=== PATIENT | female | born 1945 | race Caucasian/White ===

== ENCOUNTER 2016-07-30 22:17 | Emergency (ER) | payer OTHER, MEDICARE ==
[~2016-07-30] VITALS: Ht 160 cm; Wt 96.5 kg
[2016-07-30 22:23] VITALS: Ht 160 cm; Wt 96.5 kg
[2016-07-30] MEDS ORDERED: CEFTRIAXONE 1 GM/50 ML (PMX) 50 ML IVPB STA (22:48)
[2016-07-30] MEDS ORDERED: SOD CHLORIDE 0.9% 500 ML IV STA (22:48)
[2016-07-30] MEDS ORDERED: ACETAMINOPHEN 500 MG TAB PO STA (22:48)
[2016-07-30 23:32] LABS: ADD SCAN DIFF NO
[2016-07-30 23:37] LABS: BASOPHILS % 0.4 % (0.0-2.0); EOSINOPHILS % 0.1 % (0.0-7.0); HEMATOCRIT 35.4 % (37.0-47.0); HEMOGLOBIN 11.7 g/dl (12.0-16.0); LYMPHOCYTES # 0.7 10^3/ul (0.8-2.9); LYMPHOCYTES % 6.4 % (15.0-51.0); MEAN CORPUSCULAR HEMOGLOBIN 26.5 pg (29.0-33.0); MEAN CORPUSCULAR HGB CONC 33.1 g/dl (32.0-37.0); MEAN CORPUSCULAR VOLUME 80.3 fl (82.0-101.0); MEAN PLATELET VOLUME 11.8 fl (7.4-10.4); MONOCYTE # 1.1 10^3/ul (0.3-0.9); NEUTROPHIL # 8.9 10^3/ul (1.6-7.5); NEUTROPHILS % 81.8 % (39.0-77.0); PLATELET COUNT 185 10^3/UL (140-415); RED BLOOD COUNT 4.41 10^6/ul (4.20-5.40); WHITE BLOOD COUNT 10.9 10^3/ul (4.8-10.8)
[2016-07-30 23:49] LABS: ALBUMIN 3.3 g/dl (3.3-4.9); ALBUMIN/GLOBULIN RATIO 1.03; BILIRUBIN,DIRECT 0.1 mg/dl (0.00-0.20); BILIRUBIN,INDIRECT 0.4 mg/dl (0-1.1); BILIRUBIN,TOTAL 0.5 mg/dl (0.2-1.3); CREATININE 2.34 mg/dl (0.44-1.00); POTASSIUM 4.9 mmol/L (3.5-5.1); TOTAL PROTEIN 6.5 g/dl (6.1-8.1)
[2016-07-31] MEDS ORDERED: INSULIN REGULAR, HUMAN 100 UNIT/1 ML 3ML VIAL SC ONE (00:30)
[2016-07-31 01:10] LABS: URINE BLOOD (Dip) POC 3+ (NEGATIVE)
--- NOTE | 2016-07-31 01:12 | ERD ---
ER Documentation Chief Complaint Date/Time DATE: 07/31/16 TIME: 01:11 Chief Complaint painful urination x 5 days, diffuculty of urinating today HPI This is a very pleasant 71-year-old female painful urination 5 days with difficulty urinating today. She has mild fever. She was seen in urgent care told to come in. No nausea no vomiting no chills. No other current complaints. ROS All systems reviewed and are negative except as per history of present illness. Allergies Allergies: Coded Allergies: No Known Allergies (Verified Allergy, Unknown, 03/30/07) PMhx/Soc History of Surgery: No Anesthesia Reaction: No Hx Neurological Disorder: No Hx Respiratory Disorders: No Hx Cardiac Disorders: Yes (HTN) Hx Psychiatric Problems: No Hx Miscellaneous Medical Probl: Yes (DM) Hx Alcohol Use: No Hx Substance Use: No Hx Tobacco Use: No Smoking Status: Never smoker Physical Exam Vitals Vital Signs Date Time Temp Pulse Resp B/P Pulse Ox O2 Delivery O2 Flow Rate FiO2 07/30/16 22:23 101.4 106 20 149/65 98 Physical Exam Const: [] Head: Atraumatic Eyes: Normal Conjunctiva ENT: Normal External Ears, Nose and Mouth. Neck: Full range of motion..~ No meningismus. Resp: Clear to auscultation bilaterally Cardio: Regular rate and rhythm, no murmurs Abd: Soft, non tender, non distended. Normal bowel sounds Skin: No petechiae or rashes Back: No midline or flank tenderness Ext: No cyanosis, or edema Neur: Awake and alert Psych: Normal Mood and Affect Result Diagram: 07/30/16 2310 07/30/16 2310 Results 24 hrs Laboratory Tests Test 07/30/16 23:10 07/31/16 00:49 07/31/16 01:10 White Blood Count 10.910^3/ul Red Blood Count 4.4110^6/ul Hemoglobin 11.7g/dl Hematocrit 35.4% Mean Corpuscular Volume 80.3fl Mean Corpuscular Hemoglobin 26.5pg Mean Corpuscular Hemoglobin Concent 33.1g/dl Red Cell Distribution Width 14.0% Platelet Count 14897^3/UL Mean Platelet Volume 11.8fl Neutrophils % 81.8% Lymphocytes % 6.4% Monocytes % 10.0% Eosinophils % 0.1% Basophils % 0.4% Nucleated Red Blood Cells % 0.0/100WBC Neutrophils # 8.910^3/ul Lymphocytes # 0.710^3/ul Monocytes # 1.110^3/ul Eosinophils # 0.010^3/ul Basophils # 0.010^3/ul Nucleated Red Blood Cells # 0.010^3/ul Sodium Level 125mmol/L Potassium Level 4.9mmol/L Chloride Level 93mmol/L Carbon Dioxide Level 13mmol/L Anion Gap 24 Blood Urea Nitrogen 63mg/dl Creatinine 2.34mg/dl Glucose Level 530mg/dl Lactic Acid Level 1.6mmol/L Calcium Level 8.0mg/dl Total Bilirubin 0.5mg/dl Direct Bilirubin 0.10mg/dl Indirect Bilirubin 0.4mg/dl Aspartate Amino Transf (AST/SGOT) 26IU/L Alanine Aminotransferase (ALT/SGPT) 129IU/L Alkaline Phosphatase 195IU/L Total Protein 6.5g/dl Albumin 3.3g/dl Globulin 3.20g/dl Albumin/Globulin Ratio 1.03 Lipase 35U/L Bedside Glucose 517mg/dL Bedside Urine pH (LAB) 5.5 Bedside Urine Protein (LAB) 2+ Bedside Urine Glucose (UA) 0.25% Bedside Urine Ketones (LAB) 1+ Bedside Urine Blood 3+ Bedside Urine Nitrite (LAB) Negative Bedside Urine Leukocyte Esterase (L 1+ Current Medications Medications (Trade) Dose Ordered Sig/Leigha Route PRN Reason Start Time Stop Time Status Last Admin Dose Admin Sodium Chloride 500 ml @ 500 mls/hr Q1H STAT IV 07/30/16 22:48 07/30/16 23:47 DC 07/30/16 23:25 Ceftriaxone Sodium (Rocephin) 50 ml @ 100 mls/hr ONCE STAT IVPB 07/30/16 22:48 07/30/16 23:17 DC 07/30/16 23:25 Acetaminophen (Tylenol Tab) 1,000 mg ONCE STAT PO 07/30/16 22:48 07/30/16 22:50 DC 07/30/16 23:25 Insulin Human Regular (Humulin R) 8 unit ONCE ONCE SC 07/31/16 00:30 07/31/16 00:31 DC 07/31/16 00:46 Procedures/MDM Medical decision-makin patient was be acute cystitis. No evidence of salvador. Patient be discharged home with Keflex pending urine culture results. Given dose of Rocephin here in the emergency department. Patient also given insulin for elevated blood sugars with no evidence of diabetic ketoacidosis Departure Diagnosis: Primary Impression: Urinary tract infection Urinary tract infection type: acute cystitis Hematuria presence: without hematuria Qualified Code: N30.00 - Acute cystitis without hematuria Condition: Stable ISAEL LILLY Jul 31, 2016 01:12
[2016-07-31] MEDS ORDERED: BACTDS PO (01:13)
[2016-07-31] MEDS ORDERED: IBUP-1542 PO (01:13)
[2016-07-31] MEDS ORDERED: CEPH-443 PO (01:13)
[2016-07-31 01:27] LABS: ADD UMIC YES; URINE BILIRUBIN (Dip) 2+ (NEGATIVE); URINE BLOOD (Dip) 3+ (NEGATIVE); URINE COLOR YELLOW (YELLOW); URINE KETONES (Dip) 15 (NEGATIVE); URINE LEUKOCYTE ESTERASE (Dip) 2+ (NEGATIVE); URINE NITRITE (Dip) NEGATIVE (NEGATIVE); URINE TOTAL PROTEIN (Dip) 1+ (NEGATIVE); URINE UROBILINOGEN (Dip) 0.2 E.U./dL (0.1-1.0)
[2016-07-31 01:29] VITALS: BP 146/58; PULSE 99; RESP 18; TEMP 98.7
[2016-07-31 01:44] LABS: ICTOTEST POSITIVE (NEGATIVE)
[2016-07-31 01:45] LABS: BACTERIA,URINE MANY; MUCUS,URINE MANY; SQUAMOUS EPITHELIAL CELL,UR MANY
[2016-08-01] MEDS ORDERED: LANT3I SC (14:30)
[2016-08-01] MEDS ORDERED: INSU100C SQ (14:31)
== END 2016-07-31 01:31 | disposition home or self-care (01) ==
LOC: FTE 22:17 → E/R 07-31 01:31
DX: N30.00 Acute cystitis without hematuria (principal); I10 Essential (primary) hypertension; E11.9 Type 2 diabetes mellitus without complications
CPT/HCPCS: 36415; 80053; 81001; 81003; 82962; 83605; 83690; 85025; 87040; 87086; 96372; 96374; J0696; J1815; J7040; Z7502; Z7610

== ENCOUNTER 2016-08-01 14:00 | Inpatient (IN) | payer MEDICARE, OTHER ==
[~2016-08-01] VITALS: Ht 157.5 cm; Wt 98.5 kg
[~2016-08-01 14:00] MED LIST: BACTDS PO; CEPH-443 PO; IBUP-1542 PO
[2016-08-01] MEDS ORDERED: SOD CHLORIDE 0.9% 1,000 ML IV ONE (14:30)
[2016-08-01] MEDS ORDERED: LANT3I SC (14:30)
[2016-08-01] MEDS ORDERED: CEFTRIAXONE 1 GM/50 ML (PMX) 50 ML IVPB ONE (14:30)
[2016-08-01 14:31] LABS: ADD SCAN DIFF NO
[2016-08-01] MEDS ORDERED: INSU100C SQ (14:31)
[2016-08-01 14:33] LABS: ABNORMAL IP MESSAGE 1; BASOPHILS % 0.3 % (0.0-2.0); EOSINOPHILS # 0.1 10^3/ul (0.0-0.5); EOSINOPHILS % 1.4 % (0.0-7.0); HEMATOCRIT 33.2 % (37.0-47.0); HEMOGLOBIN 11.3 g/dl (12.0-16.0); LYMPHOCYTES # 0.5 10^3/ul (0.8-2.9); LYMPHOCYTES % 7.5 % (15.0-51.0); MEAN CORPUSCULAR HEMOGLOBIN 26.3 pg (29.0-33.0); MEAN CORPUSCULAR VOLUME 77.2 fl (82.0-101.0); MEAN PLATELET VOLUME 11.5 fl (7.4-10.4); MONOCYTE # 0.7 10^3/ul (0.3-0.9); MONOCYTES % 10.3 % (0.0-11.0); NEUTROPHIL # 5.5 10^3/ul (1.6-7.5); NEUTROPHILS % 77.7 % (39.0-77.0); PLATELET COUNT 203 10^3/UL (140-415); RED CELL DISTRIBUTION WIDTH 14.3 % (11.5-14.5); WHITE BLOOD COUNT 7.1 10^3/ul (4.8-10.8)
[2016-08-01 14:47] LABS: INR 0.91; PROTIME 12.3 Sec (12.2-14.2)
[2016-08-01 14:48] LABS: PARTIAL THROMBOPLASTIN TIME 23.6 Sec (25.0-35.0)
[2016-08-01 14:55] LABS: ALBUMIN/GLOBULIN RATIO 0.9; BILIRUBIN,INDIRECT 0.1 mg/dl (0-1.1); BILIRUBIN,TOTAL 0.1 mg/dl (0.2-1.3); CREATININE 2.3 mg/dl (0.44-1.00); POTASSIUM 3.8 mmol/L (3.5-5.1); TOTAL PROTEIN 6.3 g/dl (6.1-8.1)
[2016-08-01 15:06] LABS: TROPONIN-I 0.096 ng/ml (0.00-0.12)
[2016-08-01 15:15] LABS: ADD UMIC YES; URINE COLOR LT. YELLOW (YELLOW)
[2016-08-01] MEDS ORDERED: SODIUM CHLORIDE 0.9% 1L BAG IV* STA (15:15)
[2016-08-01 15:16] LABS: URINE BILIRUBIN (Dip) NEGATIVE (NEGATIVE); URINE GLUCOSE (Dip) 1 % (NEGATIVE); URINE KETONES (Dip) TRACE (NEGATIVE); URINE TOTAL PROTEIN (Dip) NEGATIVE (NEGATIVE)
[2016-08-01 15:17] LABS: URINE BLOOD (Dip) 3+ (NEGATIVE); URINE LEUKOCYTE ESTERASE (Dip) 1 (NEGATIVE); URINE NITRITE (Dip) NEGATIVE (NEGATIVE); URINE UROBILINOGEN (Dip) 0.2 E.U./dL (0.1-1.0)
[2016-08-01 15:20] LABS: SQUAMOUS EPITHELIAL CELL,UR FEW
--- NOTE | 2016-08-01 15:41 | ERA ---
ER Documentation Chief Complaint Date/Time DATE: 08/01/16 TIME: 15:38 Chief Complaint RECALL FOR IV ANTIBIOTICS, POSISTIVE BC HPI 71-year-old female history of diabetes who was seen here 2 days ago for a urinary tract infection, discharged on Keflex. The patient was called back because of positive urine and blood cultures with gram-negative rods. The patient still describes mild generalized malaise. Family member is noting intermittent confusion where the patient's leukocytes have been elevated in the 500 range. The patient denies any chest pain cough or shortness of breath. ROS All systems reviewed and are negative except as per history of present illness. Medications Home Meds Reported Medications Insulin Lispro (Humalog) 100 Unit/1 Ml Cartridge, 0-10 UNIT SQ AC MEALS 08/01/16 Insulin Glargine* (Lantus*) 100 Unit/Ml Soln, 0-10 UNIT SC QHS, #1 VIAL 08/01/16 Discontinued Scripts Ibuprofen* (Motrin*) 600 Mg Tab, 600 MG PO Q6, #30 TAB Prov:ISAEL LILLY 07/31/16 Cephalexin* (Keflex*) 500 Mg Capsule, 500 MG PO QID for 7 Days, CAP Prov:ISAEL LILLY S. 07/31/16 Sulfamethoxazole-Trimethoprim* (Bactrim* DS) 800-160 Mg Tab, 1 TAB PO BID for 7 Days, TAB Prov:ISAEL LILLY S. 07/31/16 Allergies Allergies: Coded Allergies: No Known Allergies (Verified Allergy, Unknown, 03/30/07) PMhx/Soc History of Surgery: No Anesthesia Reaction: No Hx Neurological Disorder: No Hx Respiratory Disorders: No Hx Cardiac Disorders: Yes (HTN) Hx Psychiatric Problems: No Hx Miscellaneous Medical Probl: Yes (DM) Hx Alcohol Use: No Hx Substance Use: No Hx Tobacco Use: No Smoking Status: Never smoker FmHx Family History: diabetes Physical Exam Vitals Vital Signs Date Time Temp Pulse Resp B/P Pulse Ox O2 Delivery O2 Flow Rate FiO2 08/01/16 16:41 97.8 108 26 122/44 100 Nasal Cannula 2.0 08/01/16 16:36 Nasal Cannula 2 08/01/16 14:03 98.2 85 18 115/58 99 Physical Exam General: Well developed, well nourished, no acute distress Head: Normocephalic, atraumatic. Eyes: Pupils equally reactive, EOM intact ENT: Moist mucous membranes Neck: Supple, no lymphadenopathy Respiratory: Lungs clear bilaterally, no distress Cardiovascular: RRR, no murmurs, rubs, or gallops Abdominal: Soft, non-tender, non-distended, no peritoneal signs : Deferred MSK: No edema, no unilateral swelling, 5/5 strength Neurologic: Alert and oriented, moving all extremities, normal speech, no focal weakness, no cerebellar signs Skin: No rash Psych: Normal mood Result Diagram: 08/01/16 1415 08/01/16 1415 Results 24 hrs Laboratory Tests Test 08/01/16 14:15 08/01/16 14:50 08/01/16 15:18 White Blood Count 7.110^3/ul Red Blood Count 4.3010^6/ul Hemoglobin 11.3g/dl Hematocrit 33.2% Mean Corpuscular Volume 77.2fl Mean Corpuscular Hemoglobin 26.3pg Mean Corpuscular Hemoglobin Concent 34.0g/dl Red Cell Distribution Width 14.3% Platelet Count 03805^3/UL Mean Platelet Volume 11.5fl Neutrophils % 77.7% Lymphocytes % 7.5% Monocytes % 10.3% Eosinophils % 1.4% Basophils % 0.3% Nucleated Red Blood Cells % 0.0/100WBC Neutrophils # 5.510^3/ul Lymphocytes # 0.510^3/ul Monocytes # 0.710^3/ul Eosinophils # 0.110^3/ul Basophils # 0.010^3/ul Nucleated Red Blood Cells # 0.010^3/ul Prothrombin Time 12.3Sec Prothrombin Time Ratio 1.0 INR International Normalized Ratio 0.91 Activated Partial Thromboplast Time 23.6Sec Sodium Level 127mmol/L Potassium Level 3.8mmol/L Chloride Level 98mmol/L Carbon Dioxide Level 19mmol/L Anion Gap 14 Blood Urea Nitrogen 82mg/dl Creatinine 2.30mg/dl Glucose Level 464mg/dl Lactic Acid Level 3.0mmol/L Calcium Level 8.0mg/dl Total Bilirubin 0.1mg/dl Direct Bilirubin 0.00mg/dl Indirect Bilirubin 0.1mg/dl Aspartate Amino Transf (AST/SGOT) 26IU/L Alanine Aminotransferase (ALT/SGPT) 82IU/L Alkaline Phosphatase 164IU/L Troponin I 0.096ng/ml Total Protein 6.3g/dl Albumin 3.0g/dl Globulin 3.30g/dl Albumin/Globulin Ratio 0.90 Urine Color LT. YELLOW Urine Clarity CLEAR Urine pH 5.5 Urine Specific [place] 1.015 Urine Ketones TRACE Urine Nitrite NEGATIVE Urine Bilirubin NEGATIVE Urine Urobilinogen 0.2 E.U./dL Urine Leukocyte Esterase 1 Urine Microscopic RBC 5-10/HPF Urine Microscopic WBC 25-50/HPF Urine Squamous Epithelial Cells FEW Urine Hemoglobin 3+ Urine Glucose 1% Urine Total Protein NEGATIVE Blood Gas Specimen Source Blood venous Arterial Blood Date Drawn 07/25/2016 3:41:29 PM Arterial Blood Gas Puncture Site VENOUS LINE Lanre Test N/A Venous Blood pH 7.325 Venous Blood pCO2 (Temp Corrected) 36.5mmHG Venous Blood pO2 (Temp Corrected) 26.0mmHG Venous Blood HCO3 18.6mmol/L Venous Blood Oxygen Saturation 50.8mmHG Venous Blood Base Excess -6.7mmol/L Venous Blood Total Hemoglobin 11.8g/dl Venous Blood Oxyhemoglobin 50.4% Venous Blood Methemoglobin 0.3% Carboxyhemoglobin 0.4% Blood Gas Temperature 37.0C Blood Gas Actual Respiration Rate 20 Blood Gas Modality ROOM AIR FiO2 21.0% Blood Gas Critical Value Read Back DR. Alessandra MARCELO Blood Gas Notified Whom RHODA COULTER Blood Gas Notified Time 08/01/2016 3:50:02 PM Current Medications Medications (Trade) Dose Ordered Sig/Leigha Route PRN Reason Start Time Stop Time Status Last Admin Dose Admin Sodium Chloride 1,000 ml @ 1,000 mls/hr Q1H ONCE IV 08/01/16 14:30 08/01/16 15:29 DC 08/01/16 14:18 Ceftriaxone Sodium (Rocephin) 50 ml @ 100 mls/hr ONCE ONCE IVPB 08/01/16 14:30 08/01/16 14:59 DC 08/01/16 14:56 Sodium Chloride (NS) 1,790 ml BOLUS OVER 2 HOURS STAT IV* 08/01/16 15:15 08/01/16 15:18 DC 08/01/16 15:48 Insulin Human Lispro (Humalog) 6 unit ONCE STAT SC 08/01/16 16:08 08/01/16 16:09 DC Ondansetron HCl (Zofran Inj) 4 mg BRIDGE ORDER PRN IV NAUSEA AND/OR VOMITING 08/01/16 16:30 08/02/16 16:29 Acetaminophen (Tylenol Tab) 650 mg ER BRIDGE PRN PO MILD PAIN/FEVER 08/01/16 16:30 08/02/16 16:29 Procedures/MDM EKG, MONITORS, & DIAGNOSTIC IMAGING: EKG: I reviewed and interpreted a 12-lead EKG. Rhythm: Normal sinus rhythm Ectopy: None Intervals: No abnormalities ST segments: No elevations or depressions T waves: No contiguous inversions Chest x-ray: I reviewed and interpreted a 1 view of the chest Mediastinum: No enlargement Cardiac silhouette: No cardiomegaly Airspace: Clear lung saleh bilaterally without evidence of pneumothorax Bones: No evidence of fracture CT brain: No acute intracranial process LAB INTERPRETATION: The patient does have hyperglycemia with borderline acidosis. She has some ketones in the urine but a bicarb of 19. Consider possible early diabetic ketoacidosis. Lactic acidosis is also noted. MEDICAL DECISION MAKING: The patient presents with bacteremia. The patient will require sepsis screening and sepsis treatment. The patient's lactic acid is elevated consistent with severe sepsis. The patient has been given a 30 cc/kg bolus of saline. Ceftriaxone provided given gram-negative rods. The patient is otherwise well-appearing with hemodynamic stability. No indication for central line or pressors at this time. ER COURSE: The patient does have a lactic acid of 3.0. The patient however is hemodynamically stable. She has been given fluid bolus, blood cultures, antibiotics. Additionally, the patient has hyperglycemia with early signs of diabetic ketoacidosis. The patient's pH does not meet criteria and bicarb is greater than 18 however she does have ketonuria. For this reason the patient has been given IV fluids and subcutaneous Humalog of 6 units. I do not believe that insulin drip is indicated at this time. The patient remains hemodynamically stable. I believe she is stable for medical surgical floor. The patient's family did note some confusion prompting a CT of the brain. However the patient's confusion appears to be subacute, nonfocal and likely secondary to UTI. I kept the patient and/or family informed of laboratory and diagnostic imaging results throughout the emergency room course. DISPOSITION PLAN: Medical surgical admission CONSULTATION: Accepting care team and consultations: I discussed the current laboratory data, diagnostic imaging and emergency care provided. Admitting team: Dr. Ally EASON Admitting team indication: Insurance directed Sepsis Documentation: Patient's infectious symptoms have not stabilized and the patient is at risk of rapid decompensation. The patient will be admitted for careful hydration, antibiotic therapy, and infectious source control. SEVERE SEPSIS CRITERIA: Infectious source: Urinary tract infection End organ damage indicated by: [Lactate > 2.0 mmol/L SEPSIS MANAGEMENT Time of recognition of severe sepsis/septic shock: Upon arrival 3 HOUR BUNDLE Blood cultures x 2 before broad-spectrum antibiotics: Yes 30 ml/kg NS bolus Completed Initial lactate 3.0 Repeat lactate pending SEPTIC SHOCK ASSESSMENT: No lactic acid > 4.0 No persistent hypotension (SBP < 90 or 40 mmHg drop, MAP < 65) despite 30 mL/kg IV fluid bolus VOLUME REASSESSMENT FOR SEPTIC SHOCK: Reevaluation Time: 3:41 PM Temperature of 97.8, heart rate 108, respiratory rate 26, blood pressure 122/44 , pulse ox 100% on 2 L Heart Regular rate & rhythm Lungs No crackles Skin Warm & dry Cap Refill Less than 2 seconds Peripheral pulses Radially present PERSISTENT HYPOTENSION TREATMENT: Comfort care No Central line Not Required Vasopressor started Not required I considered further perfusion assessment with CVP measurement, SCVO2, bedside ultrasound volume assessment, passive leg raise, trial of further fluid bolus. And proceeded with 30 ml/kg fluid bolus of NSS, broad spectrum antbiotics, and admission. CRITICAL CARE Critical care time 35 minutes Emergent fluid management while maintaining close respiratory support. Provision of immediate and broad-spectrum antibiotic therapy. Simultaneous assessment for possible sources in order to direct targeted therapy. Consideration for invasive and chemical support to prevent cardiopulmonary collapse. Critical care time is independent of procedures performed. Departure Diagnosis: Primary Impression: Hyperglycemia Additional Impressions: Severe sepsis Urinary tract infection Qualified Code: N30.00 - Acute cystitis without hematuria Chronic renal insufficiency Qualified Code: N18.9 - Chronic renal insufficiency, unspecified stage Condition: Stable JOHNNY MARCELO MD Aug 01, 2016 15:41
[2016-08-01 15:50] LABS: MODE ROOM AIR; MetHgb Venous 0.3 %; Sample Type Blood venous; Venous COHb 0.4 %; Venous Fraction OxyHgb 50.4 %; Venous Total Hemglobin 11.8 g/dl
[2016-08-01] MEDS ORDERED: INSULIN LISPRO 100 UNIT/ML VIAL SC STA (16:08)
[2016-08-01] MEDS ORDERED: ACETAMINOPHEN 325 MG TAB PO PRN ×2 (16:30→17:30)
[2016-08-01] MEDS ORDERED: ONDANSETRON 4 MG INJ IV PRN ×2 (16:30→17:30)
--- NOTE | 2016-08-01 16:35 | RADRPT ---
PROCEDURE: CT Brain without. CLINICAL INDICATION: Altered mental status. Dizziness. TECHNIQUE: A CT of the brain was performed on multidetector high-resolution CT scanner utilizing a xial sections from the skull base through the vertex without contrast. The scan was reviewed in sof t tissue brain and high frequency resolution bone algorithm windows. Images were reviewed on a high -resolution PACS workstation. One or more the following does reduction techniques were utilized: Aut omated exposure control, adjustment of the mA/ or kV according to patient's size, or use of iterativ e reconstruction technique. The exam CTDI = 43.05 mGy and the DLP = 720.23 mGy-cm. COMPARISON: None available. FINDINGS: The ventricles and sulci are minimally prominent indicative of volume loss. There is no intracranial hemorrhage, mass effect or midline shift. No abnormal intra-axial or extra-axial fluid collections are seen. The laguerre/white matter differentiation is preserved. There are mild scattered foci of hypoattenuation in the white matter, which are nonspecific in etiol ogy but likely reflect chronic small vessel ischemic changes. There are mild intracranial vascular calcifications consistent with atherosclerosis. The visualized paranasal sinuses are essentially em ar. IMPRESSION: 1. No acute intracranial hemorrhage, transcortical infarction or mass effect. 2. Mild intracranial atherosclerosis and chronic small vessel ischemic changes. 3. Minimal generalized cerebral volume loss. RPTAT: HH .Odell Carrion MD, MD Date Time Electronically viewed and signed by .Odell Carrion MD, MD on 08/01/2016 16:35 .N/
[2016-08-01 17:22] VITALS: TEMP 98
[2016-08-01] MEDS ORDERED: BISACODYL 10 MG SUPP PR PRN (17:30)
[2016-08-01] MEDS ORDERED: GLUCAGON 1 MG INJ IM PRN (17:30)
[2016-08-01] MEDS ORDERED: DEXTROSE 50% 50 ML SYRINGE IV PRN ×2 (17:30)
[2016-08-01] MEDS ORDERED: HYDROCODONE/APAP (5/325) TAB PO PRN ×2 (17:30)
[2016-08-01] MEDS ORDERED: DOCUSATE SODIUM 100 MG CAP PO PRN (17:30)
[2016-08-01] MEDS ORDERED: GLUCOSE GEL 15 GRAM TUBE BUCCAL PRN (17:30)
[2016-08-01] MEDS ORDERED: NACL 0.9% 3 ML SYG IV SCH (17:30)
[2016-08-01] MEDS ORDERED: MAGNESIUM HYDROXIDE 30ML CUP PO PRN (17:30)
[2016-08-01] MEDS ORDERED: GLUCOSE GEL 15 GRAM TUBE PO PRN ×2 (17:30)
[2016-08-01] MEDS ORDERED: INSULIN GLARGINE [LANtus] 3 ML PEN SC ONE ×2 (18:00→18:30)
[2016-08-01] MEDS ORDERED: SOD CHLORIDE 0.9% 500 ML IV ONE (18:00)
--- NOTE | 2016-08-01 18:36 | HP ---
DATE OF ADMISSION: 08/01/2016 CHIEF COMPLAINT ON ADMISSION: The patient was recalled to the ER due to positive blood cultures. HISTORY OF PRESENT ILLNESS: This is a 71-year-old female with history of diabetes mellitus, who is not well controlled at baseline. She claims that she is on maximum of 35 units of Lantus at night a nd this is if follow blood sugars run in the 500s, and also taking NovoLog subq as a sliding scale, usually 20 units at a time because her blood sugar runs in the 400s to 600s at home, who presented t o the emergency department with complaints of generalized weakness and also because she was called b y the ER staff to come back to the ER due to positive blood cultures. The patient was seen in the e mergency department 2 days ago when she presented with a complaint of urinary tract infection and wa s diagnosed with a urinary tract infection. At that time, blood cultures and urine cultures were yogesh tuan. She was discharged home on Keflex from the ER. The patient reports that over the past 2 days, she has not been doing very well. She took the Keflex yesterday, 2 doses of it, after that she sto pped and this morning she was called to come back to the ER, so she did not take any of her Keflex. She reports that her dysuria has resolved, but she was having some suprapubic tenderness. She repo rts generalized weakness, generalized feeling of discomfort. According to the family, she was alter ed yesterday. She was not making much sense. She denies any fevers, chills, nausea or vomiting. S he denies any dysuria, but does report urinary frequency. In the emergency department, her white bl ood cell count is actually within normal. She is noted to have elevated blood sugars in the 500s an d the patient does confirm that is what her blood sugars have been running at home. She denies any chest pain, cough or shortness of breath. She reports thirst. She is independent at home and her m ental status is usually within normal at home. ALLERGIES: NO KNOWN ALLERGIES. PAST MEDICAL HISTORY: 1. Diabetes mellitus. 2. Mild hypertension, according to patient. PAST SURGICAL HISTORY: Status post cholecystectomy remotely. SOCIAL HISTORY: The patient lives with family. She denies tobacco or alcohol use. FAMILY HISTORY: Noncontributory. OUTPATIENT MEDICATIONS: Include: 1. Lispro or Humalog. She reports that she takes up to 20 units subcu with meals, depending on her insulin, and she has been running with blood sugars 400 to sometimes 500 to 600, from what she is r eporting. 2. Lantus. She also reports that she checks her blood pressure before taking it at night and she h as been taking up to 35 units if her blood sugars are in the 400s. PHYSICAL EXAMINATION: VITAL SIGNS: Temperature 98.0, heart rate of 106, respiratory rate 20, blood pressure 120/47. Debby ent is saturating 100% on 2 liters nasal cannula ____ room air. GENERAL: Patient is alert. She is oriented. She is in mild distress. She reports that she is thi rsty, but she feels much better. HEENT: Pupils are equally round and reactive to light. Extraocular muscles are intact. Anicteric sclerae. NECK: No JVD, no thyromegaly noted. HEART: Regular rhythm, tachycardic. LUNGS: Clear to auscultation bilaterally. ABDOMEN: Soft, nontender. She does have more or less an obese abdomen and the patient claims that it is baseline. She has no suprapubic tenderness on exam today. EXTREMITIES: No edema, clubbing or cyanosis. NEUROLOGIC: Grossly intact. LABORATORY DATA: White blood cell count is 7.1 with 77% neutrophils, no bands, hemoglobin 11.3, hem atocrit 33.2, platelet count of 203. Chemistry with a sodium of 127, but corrected comes up to appr oximately 131, potassium of 3.8, chloride 98, bicarbonate of 19, BUN 82, creatinine 2.30 with a gluc ose of 464 on presentation, lactic acid of 3.0, calcium 8.0, AST 26, ALT 82, alkaline phosphatase o f 164. Troponin 0.096. Repeat lactic acid is down to 1.4. Her blood sugar, however, was up to 572 , which is down to 520 currently. INR is 0.91. PT 12.3, PTT 23.6. Urinalysis shows trace ketones, 1 leukocyte esterase, negative nitrites, 25 to 50 white blood cells. Blood cultures from 07/30/2016 showing gram-negative rods x2 and urine culture also showing gram-neg ative rods. Final cultures are still pending. The patient has blood cultures and urine cultures fr om today already sent out. RADIOLOGICAL DATA: A CAT scan of the brain does not show any acute findings. ASSESSMENT AND PLAN: This is a 71-year-old female with: 1. Gram-negative chris urinary tract infection and sepsis. Her antibiotics have been expended to [facility] pen until final cultures are available. She is probably partially treated, as her white count is within normal while she was on Keflex. given her abnormal renal function, will check renal ultrasou nd today. Continue IV fluids. Treat hyperglycemia. The patient is usually on 35 units subq of ins ulin and she may need at least that; therefore, her Lantus is given tonight and will monitor her blo od sugar subsequently. Follow up blood culture results. Monitor patient. She is currently hemodyn amically stable. Her lactate is back down to normal. She may be stable enough to go to a medical/s urgical bed once her blood sugars are a little better controlled. This is per medical surgery requi rements. 2. Diabetes mellitus, not very well controlled, based on patient's reports of blood sugars at home. Hemoglobin A1c is pending. We will resume the Lantus and will titrate subsequently either up or d own, depending on where her blood sugar levels out. Continue sliding insulin and subcutaneous insul in with meals. 3. Chronic kidney disease. The patient's baseline creatinine seems to be around 2.3, based on prev ious visits here in the hospital. Will continue IV fluids currently, as she may have mostly element of acute kidney injury in setting of hyperglycemia and also hypovolemia. Check renal ultrasound. Renal ultrasound pending at this point to rule out nephrolithiasis. Follow up on urine culture resu lts and treat appropriately underlying infection. 4. Lactic acidosis seems to be resolved currently, and will repeat her BMP later today. 5. Prophylaxis: Pepcid for gastrointestinal prophylaxis. SCDs to lower extremity for deep vein th rombosis prophylaxis. DISPOSITION: The patient currently seems to be stable enough to go to a medical/surgical bed. Ruby yinka, if she is to decline of blood sugars or staying elevated, or her repeat BMP is significantly ab normal, she may need to be upgraded to telemetry. Dictated By: GENA LERMA/FREDERICK Conf#: [id number] [facility]#: [id number]
[2016-08-01 19:31] VITALS: BP 129/62; RESP 22
[2016-08-01] MEDS: INSULIN ASPART [NOVOLOG] 3 ML PEN SC SCH ×3 (19:44→20:32)
[2016-08-01] MEDS: SOD CHLORIDE 0.9% 1,000 ML IV SCH (19:52)
[2016-08-01] MEDS ORDERED: INSULIN GLARGINE [LANtus] 3 ML PEN SC SCH (20:00)
[2016-08-01] MEDS: FAMOTIDINE 20 MG TAB PO SCH (20:43)
[2016-08-01] MEDS: IMIPENEM-CILAST 500MG IV (PMX) 100 ML IVPB SCH (20:43)
[2016-08-01 20:55] LABS: CALCIUM 7.4 mg/dl (8.4-10.2); CREATININE 2.25 mg/dl (0.44-1.00); POTASSIUM 4.1 mmol/L (3.5-5.1)
[2016-08-01 21:23] VITALS: Ht 157.5 cm; Wt 98.5 kg
[2016-08-01] MEDS ORDERED: INSULIN ASPART [NOVOLOG] 3 ML PEN SC ONE (22:00)
[2016-08-01] MEDS ORDERED: INSULIN REGULAR 10 ML INJ IV ONE (22:00)
[2016-08-02] MEDS ORDERED: ALPRAZOLAM 0.25 MG TAB PO ONE (01:30)
[2016-08-02] MEDS: INSULIN ASPART [NOVOLOG] 3 ML PEN SC SCH ×5 (01:41→17:58)
[2016-08-02 02:22] LABS: POTASSIUM 3.7 mmol/L (3.5-5.1)
[2016-08-02 02:24] LABS: CREATININE 1.98 mg/dl (0.44-1.00)
[2016-08-02 02:25] LABS: CALCIUM 7.5 mg/dl (8.4-10.2)
[2016-08-02] MEDS: SOD CHLORIDE 0.9% 1,000 ML IV SCH ×4 (04:15→23:50)
[2016-08-02 05:33] LABS: ADD SCAN DIFF NO
[2016-08-02 05:46] LABS: ALBUMIN 2.5 g/dl (3.3-4.9)
[2016-08-02 05:47] LABS: POTASSIUM 3.5 mmol/L (3.5-5.1)
[2016-08-02 05:49] LABS: BILIRUBIN,INDIRECT 0.2 mg/dl (0-1.1); BILIRUBIN,TOTAL 0.2 mg/dl (0.2-1.3); CREATININE 1.8 mg/dl (0.44-1.00)
[2016-08-02] MEDS: IMIPENEM-CILAST 500MG IV (PMX) 100 ML IVPB SCH (05:49)
[2016-08-02 05:50] LABS: ALBUMIN/GLOBULIN RATIO 0.83; CALCIUM 7.7 mg/dl (8.4-10.2); TOTAL PROTEIN 5.5 g/dl (6.1-8.1)
[2016-08-02 05:52] LABS: BASOPHILS % 0.2 % (0.0-2.0); EOSINOPHILS # 0.1 10^3/ul (0.0-0.5); EOSINOPHILS % 2.5 % (0.0-7.0); HEMATOCRIT 29.3 % (37.0-47.0); HEMOGLOBIN 9.9 g/dl (12.0-16.0); LYMPHOCYTES # 0.8 10^3/ul (0.8-2.9); MAGNESIUM 2.2 mg/dl (1.7-2.5); MEAN CORPUSCULAR HGB CONC 33.8 g/dl (32.0-37.0); MEAN CORPUSCULAR VOLUME 76.9 fl (82.0-101.0); MEAN PLATELET VOLUME 11.3 fl (7.4-10.4); MONOCYTE # 0.6 10^3/ul (0.3-0.9); NEUTROPHIL # 3.9 10^3/ul (1.6-7.5); NEUTROPHILS % 68.1 % (39.0-77.0); PHOSPHORUS 1.8 mg/dl (2.5-4.9); PLATELET COUNT 205 10^3/UL (140-415); RED BLOOD COUNT 3.81 10^6/ul (4.20-5.40); RED CELL DISTRIBUTION WIDTH 14.4 % (11.5-14.5); WHITE BLOOD COUNT 5.7 10^3/ul (4.8-10.8)
[2016-08-02 07:24] VITALS: BP 157/70; RESP 18
[2016-08-02] MEDS ORDERED: POTASSIUM CHLORIDE (SR) 10 MEQ TAB PO ONE (07:30)
[2016-08-02] MEDS ORDERED: MAGNESIUM SULFATE 2 GM/50 ML 50 ML IVPB ONE (08:00)
[2016-08-02] MEDS ORDERED: ACCU-CHEK XX SCH (08:15)
[2016-08-02] MEDS: FAMOTIDINE 20 MG TAB PO SCH (08:47)
[2016-08-02] MEDS: Insulin NOVOLOG SS MODERATE Algorithm (SS with meals and bedtime) SC SCH ×4 (08:55→20:49)
[2016-08-02] MEDS ORDERED: ENOXAPARIN 30 MG/0.3 ML SYG SC SCH (09:00)
[2016-08-02] MEDS ORDERED: ALBUTEROL/IPRATROPIUM (NEB) 3 ML AMP HHN PRN (14:00)
--- NOTE | 2016-08-02 14:16 | PN ---
Date/Time of Note Date/Time of Note DATE: 08/02/16 TIME: 13:58 Assessment/Plan VTE Prophylaxis VTE Prophylaxis Intervention: SCD's Lines/Catheters Urinary Cath still in place: No Assessment/Plan Assessment/Plan 71-year-old female with: 1. Gram-negative chris, likely E coli urinary tract infection and bacteremia based on cx result from 07/30 Antibiotics adjusted to Ciprofloxacin Renal ultrasound pending given ARELY Follow up repeat blood and urine cx on this admission 2. Diabetes mellitus, not very well controlled, based on patient's reports of blood sugars at home. Hemoglobin A1c 8.5 today Lantus resumed at 20 u qhs along with Novolog 10 units qAC Continue Accuchecks with moderate SSI for now DM education appreciated 3. ARELY on likely Chronic kidney disease. Decrease IVF to 75 cc/hr Repeat labs in AM Follow up renal US results Hold of HCTZ/Triamterene for now Hold off ARB for now given renal function 4. Hypertension: Resume Metoprolol. 5. Lactic acidosis resolved. Prophylaxis: Pepcid for gastrointestinal prophylaxis. SCDs to lower extremity for deep vein thrombosis prophylaxis. DISPOSITION: Follow up repeat cultures, Blood glucose control and renal function Discharge planning over the weekend if remains stable. Subjective 24 Hr Interval Summary Free Text/Dictation Patient doing well this AM Feels better and renal function and BMP much better, BG better controlled DM education Blood cx from 07/30 back with E coli sensitive to Cipro (resistant to keflex), repeat blood cx on this admission pending Exam/Review of Systems Vital Signs Vitals Vital Signs Date Time Temp Pulse Resp B/P Pulse Ox O2 Delivery O2 Flow Rate FiO2 08/02/16 07:24 96.9 91 18 157/70 93 08/01/16 18:00 Room Air 08/01/16 17:22 2.0 Intake and Output 08/01/16 08/01/16 08/02/16 15:00 23:00 07:00 Intake Total 100 ml 1700 ml Output Total 700 ml Balance 100 ml 1000 ml Exam Constitutional: alert, oriented, other (sitting up in chair ), well developed Respiratory: clear to auscultation, normal air movement Cardiovascular: nl pulses, regular rate and rhythm Gastrointestinal: non-tender, other (obese ), soft Musculoskeletal: nl extremities to inspection Extremities: normal pulses, other (trace edema) Neurological: OPERATIONS SUPERVISOR II-XII intact, nl mental status, nl speech, nl strength Results Result Diagram: 08/02/16 0500 08/02/16 0500 Results 24 hrs Laboratory Tests Test 08/01/16 14:15 08/01/16 14:50 08/01/16 15:18 08/01/16 16:46 White Blood Count 7.1 # Red Blood Count 4.30 Hemoglobin 11.3 L Hematocrit 33.2 L Mean Corpuscular Volume 77.2 L Mean Corpuscular Hemoglobin 26.3 L Mean Corpuscular Hemoglobin Concent 34.0 Red Cell Distribution Width 14.3 Platelet Count 203 Mean Platelet Volume 11.5 H Neutrophils % 77.7 H Lymphocytes % 7.5 L Monocytes % 10.3 Eosinophils % 1.4 Basophils % 0.3 Nucleated Red Blood Cells % 0.0 Neutrophils # 5.5 Lymphocytes # 0.5 L Monocytes # 0.7 Eosinophils # 0.1 Basophils # 0.0 Nucleated Red Blood Cells # 0.0 Prothrombin Time 12.3 Prothrombin Time Ratio 1.0 INR International Normalized Ratio 0.91 Activated Partial Thromboplast Time 23.6 L Sodium Level 127 L Potassium Level 3.8 Chloride Level 98 Carbon Dioxide Level 19 L Anion Gap 14 # Blood Urea Nitrogen 82 H Creatinine 2.30 H Glucose Level 464 *H Lactic Acid Level 3.0 H Calcium Level 8.0 L Total Bilirubin 0.1 L Direct Bilirubin 0.00 Indirect Bilirubin 0.1 Aspartate Amino Transf (AST/SGOT) 26 Alanine Aminotransferase (ALT/SGPT) 82 H Alkaline Phosphatase 164 H Troponin I 0.096 Total Protein 6.3 Albumin 3.0 L Globulin 3.30 H Albumin/Globulin Ratio 0.90 Urine Color LT. YELLOW Urine Clarity CLEAR Urine pH 5.5 Urine Specific [place] 1.015 Urine Ketones TRACE Urine Nitrite NEGATIVE Urine Bilirubin NEGATIVE Urine Urobilinogen 0.2 E.U./dL Urine Leukocyte Esterase 1 Urine Microscopic RBC 5-10 Urine Microscopic WBC 25-50 Urine Squamous Epithelial Cells FEW Urine Hemoglobin 3+ H Urine Glucose 1 Urine Total Protein NEGATIVE Blood Gas Specimen Source Blood venous Arterial Blood Date Drawn 07/25/2016 3:41:29 PM Arterial Blood Gas Puncture Site VENOUS LINE Lanre Test N/A Venous Blood pH 7.325 L Venous Blood pCO2 (Temp Corrected) 36.5 Venous Blood pO2 (Temp Corrected) 26.0 Venous Blood HCO3 18.6 L Venous Blood Oxygen Saturation 50.8 L Venous Blood Base Excess -6.7 L Venous Blood Total Hemoglobin 11.8 Venous Blood Oxyhemoglobin 50.4 Venous Blood Methemoglobin 0.3 Carboxyhemoglobin 0.4 Blood Gas Temperature 37.0 Blood Gas Actual Respiration Rate 20 Blood Gas Modality ROOM AIR FiO2 21.0 Blood Gas Critical Value Read Back DR. Alessandra MARCELO Blood Gas Notified Whom RHODA RT Blood Gas Notified Time 08/01/2016 3:50:02 PM Bedside Glucose 572 *H Test 08/01/16 17:05 08/01/16 17:20 08/01/16 18:16 08/01/16 18:37 Lactic Acid Level 1.4 Bedside Glucose 520 *H 513 *H 501 *H Test 08/01/16 19:19 08/01/16 20:05 08/01/16 21:11 08/02/16 01:17 Bedside Glucose 540 *H 409 *H 313 H Sodium Level 128 L Potassium Level 4.1 Chloride Level 101 Carbon Dioxide Level 11 L Anion Gap 20 H Blood Urea Nitrogen 75 H Creatinine 2.25 H Glucose Level 544 *H Lactic Acid Level 1.0 Calcium Level 7.4 L Test 08/02/16 02:06 08/02/16 05:00 08/02/16 05:44 08/02/16 07:56 Sodium Level 135 138 Potassium Level 3.7 3.5 Chloride Level 106 107 Carbon Dioxide Level 18 L 21 Anion Gap 15 14 Blood Urea Nitrogen 70 H 66 H Creatinine 1.98 H 1.80 H Glucose Level 322 #H 212 # Calcium Level 7.5 L 7.7 L White Blood Count 5.7 Red Blood Count 3.81 L Hemoglobin 9.9 L Hematocrit 29.3 L Mean Corpuscular Volume 76.9 L Mean Corpuscular Hemoglobin 26.0 L Mean Corpuscular Hemoglobin Concent 33.8 Red Cell Distribution Width 14.4 Platelet Count 205 Mean Platelet Volume 11.3 H Neutrophils % 68.1 Lymphocytes % 14.0 L Monocytes % 11.0 Eosinophils % 2.5 Basophils % 0.2 Nucleated Red Blood Cells % 0.0 Neutrophils # 3.9 Lymphocytes # 0.8 Monocytes # 0.6 Eosinophils # 0.1 Basophils # 0.0 Nucleated Red Blood Cells # 0.0 Hemoglobin A1c 8.6 H Phosphorus Level 1.8 L Magnesium Level 2.2 Total Bilirubin 0.2 Direct Bilirubin 0.00 Indirect Bilirubin 0.2 Aspartate Amino Transf (AST/SGOT) 18 Alanine Aminotransferase (ALT/SGPT) 62 Alkaline Phosphatase 119 Total Protein 5.5 L Albumin 2.5 L Globulin 3.00 Albumin/Globulin Ratio 0.83 Bedside Glucose 183 243 H Test 08/02/16 08:39 08/02/16 12:03 Bedside Glucose 270 H 266 H Medications Medications Current Medications Imipenem/ Cilastatin Sodium (Primaxin 500 Mg/ 100 ml (Pmx)) 100 ml @ 100 mls/ hr Q12H IVPB Last administered on 08/02/16 05:49; Admin Dose 100 MLS/HR; Start 08/01/16 at 18:00 Miscellaneous Information 1 ea NOTE XX ; Start 08/01/16 at 17:30 Glucose (Glutose) 15 gm Q15M PRN PO DECREASED GLUCOSE; Start 08/01/16 at 17:30 Glucose (Glutose) 22.5 gm Q15M PRN PO DECREASED GLUCOSE; Start 08/01/16 at 17: 30 Dextrose (D50w Syringe) 25 ml Q15M PRN IV DECREASED GLUCOSE; Start 08/01/16 at 17:30 Dextrose (D50w Syringe) 50 ml Q15M PRN IV DECREASED GLUCOSE; Start 08/01/16 at 17:30 Glucagon (Glucagen) 1 mg Q15M PRN IM DECREASED GLUCOSE; Start 08/01/16 at 17:30 Glucose 15 gm 15 gm Q15M PRN BUCCAL DECREASED GLUCOSE; Start 08/01/16 at 17:30 Sodium Chloride (NS) 1,000 ml @ 75 mls/hr [id number] IV Last administered on 08/02 05:40; Admin Dose 125 MLS/HR; Start 08/01/16 at 19:00 Ondansetron HCl (Zofran Inj) 4 mg Q6H PRN IV NAUSEA AND/OR VOMITING; Start at 17:30 Acetaminophen (Tylenol Tab) 650 mg Q6H PRN PO PAIN LEVEL 1-3 OR FEVER; Start at 17:30 Acetaminophen/ Hydrocodone Bitart ([place] (5/325)) 1 tab Q6H PRN PO MODERATE PAIN LEVEL 4-6; Start 08/01/16 at 17:30 Acetaminophen/ Hydrocodone Bitart ([place] (5/325)) 2 tab Q6H PRN PO SEVERE PAIN LEVEL 7-10; Start 08/01/16 at 17:30 Docusate Sodium (Colace) 100 mg Q12H PRN PO CONSTIPATION; Start 08/01/16 at 17: 30 Magnesium Hydroxide (Milk Of Mag) 30 ml DAILY PRN PO CONSTIPATION; Start at 17:30 Bisacodyl (Dulcolax Supp) 10 mg DAILY PRN [place] CONSTIPATION; Start 08/01/16 at 17 :30 Insulin Glargine (Lantus) 20 unit DAILY SC ; Start 08/02/16 at 20:00 Metoprolol Tartrate (Lopressor) 50 mg BID PO ; Start 08/02/16 at 21:00 Ferrous Sulfate (Ferrous Sulfate (Ec)) 325 mg DAILY PO ; Start 08/03/16 at 09:00 Pantoprazole (Protonix Tab) 40 mg DAILY@06 PO ; Start 08/02/16 at 14:00 Aspirin (Halfprin) 81 mg DAILY PO ; Start 08/02/16 at 14:00 GENA PIKE Aug 02, 2016 14:15
[2016-08-02] MEDS: PANTOPRAZOLE (EC) 40 MG TAB PO SCH (14:42)
[2016-08-02] MEDS: ASPIRIN (EC) 81 MG TAB PO SCH (14:42)
[2016-08-02] MEDS: CIPROFLOXACIN 400MG/D5W 200 ML IVPB SCH (14:43)
--- NOTE | 2016-08-02 18:47 | RADRPT ---
PROCEDURE: XR Chest. CLINICAL INDICATION: Shortness of breath TECHNIQUE: Single frontal view of the chest was obtained COMPARISON: None FINDINGS: The heart is enlarged. Low lung volumes compresses the lung parenchyma. Pulmonary vascular congestion and patchy bibasilar atelectasis is suggested. The right hemidiaphragm is mildly elevated. The pleural spaces are grossly clear on this single vie w. The bones and soft tissue show no acute change. IMPRESSION: 1. Cardiomegaly. 2. Low lung volumes compresses the lung parenchyma. Pulmonary vascular congestion and patchy bibas ilar atelectasis is not excluded. 3. The right hemidiaphragm is elevated. RPTAT:AAJJ Physician Urbano Date Time Electronically viewed and signed by Bryan Herndon Physician on 08/01/2016 15:53 /
[2016-08-02 20:00] VITALS: BP 162/74; RESP 20
[2016-08-02] MEDS ORDERED: INSULIN GLARGINE [LANtus] 3 ML PEN SC SCH (20:00)
[2016-08-02] MEDS: METOPROLOL 50 MG TAB PO SCH (20:43)
[2016-08-02] MEDS: INSULIN GLARGINE [LANtus] 3 ML PEN SC SCH (20:52)
[2016-08-02 23:00] VITALS: BP 133/96; PULSE 76
[2016-08-03] MEDS ORDERED: LORAZEPAM 0.5 MG TAB PO ONE
[2016-08-03] MEDS ORDERED: INSULIN ASPART [NOVOLOG] 3 ML PEN SC SCH
[2016-08-03] MEDS: SOD CHLORIDE 0.9% 1,000 ML IV SCH ×3 (02:41→18:37)
[2016-08-03] MEDS: PANTOPRAZOLE (EC) 40 MG TAB PO SCH (06:00)
[2016-08-03 07:51] VITALS: BP 185/78; RESP 20
[2016-08-03] MEDS: Insulin NOVOLOG SS MODERATE Algorithm (SS with meals and bedtime) SC SCH ×4 (08:05→21:00)
[2016-08-03] MEDS: INSULIN ASPART [NOVOLOG] 3 ML PEN SC SCH ×3 (08:06→17:51)
[2016-08-03] MEDS: ASPIRIN (EC) 81 MG TAB PO SCH (08:15)
[2016-08-03] MEDS: FERROUS SULFATE (EC) 325 MG TAB PO SCH (08:15)
[2016-08-03] MEDS: METOPROLOL 50 MG TAB PO SCH ×2 (08:23→21:21)
[2016-08-03] MEDS: INSULIN GLARGINE [LANtus] 3 ML PEN SC SCH (08:37)
[2016-08-03 10:00] VITALS: BP 153/68; PULSE 87
[2016-08-03 11:05] LABS: ADD SCAN DIFF NO
[2016-08-03 11:08] LABS: BASOPHILS % 0.3 % (0.0-2.0); EOSINOPHILS # 0.2 10^3/ul (0.0-0.5); EOSINOPHILS % 3.1 % (0.0-7.0); HEMATOCRIT 31.2 % (37.0-47.0); HEMOGLOBIN 10.6 g/dl (12.0-16.0); LYMPHOCYTES # 1.1 10^3/ul (0.8-2.9); LYMPHOCYTES % 15.5 % (15.0-51.0); MEAN CORPUSCULAR HEMOGLOBIN 26.4 pg (29.0-33.0); MEAN CORPUSCULAR VOLUME 77.6 fl (82.0-101.0); MEAN PLATELET VOLUME 10.4 fl (7.4-10.4); MONOCYTE # 0.6 10^3/ul (0.3-0.9); MONOCYTES % 9.3 % (0.0-11.0); NEUTROPHIL # 4.7 10^3/ul (1.6-7.5); NEUTROPHILS % 68.9 % (39.0-77.0); PLATELET COUNT 249 10^3/UL (140-415); RED BLOOD COUNT 4.02 10^6/ul (4.20-5.40); RED CELL DISTRIBUTION WIDTH 14.6 % (11.5-14.5); WHITE BLOOD COUNT 6.8 10^3/ul (4.8-10.8)
[2016-08-03 11:21] LABS: POTASSIUM 3.8 mmol/L (3.5-5.1)
[2016-08-03 11:35] LABS: PHOSPHORUS 1.3 mg/dl (2.5-4.9)
--- NOTE | 2016-08-03 14:13 | PN ---
Date/Time of Note Date/Time of Note DATE: 08/03/16 TIME: 14:11 Assessment/Plan VTE Prophylaxis VTE Prophylaxis Intervention: SCD's Lines/Catheters IV Catheter Type (from [facility]): Peripheral IV Urinary Cath still in place: No Assessment/Plan Assessment/Plan [facility] 1. 71-year-old woman admitted two days ago with E.coli bacteremia, sepsis, and a urinary source. E coli was cultured from two blood samples and urine, shown resistant to cephalosporins, but sensitive to fluoroquinolones and Bactrim. * Continue ciprofloxacin * Renal ultrasound still pending 2. Diabetes mellitus, poorly controlled sugars in the 200s. Hemoglobin A1c 8.5 %. * Increase Lantus to 25 units qhs starting tonight. * Novolog increase to 13 units qAC * Continue Accuchecks * Stop sliding scale insulin to better gauge what her insulin needs are * DM education 3. Chzqg-sb-[id number] kidney disease with hypertension * Hold of HCTZ/Triamterene for now * Hold off ARB for now given renal function * On metoprolol 4. Dyspneic since yesteday. Mild basilar crackles on exam. Mild pulmonary vascular congestion on CXR two days ago. * PA/lateral CXR * Blood pressure can tolerate use of a diuretic if necessary 5. Confused last night. Sounds like . * Ativan 0.5mg PO QHS PRN for insomnia, confusion 6. Prophylaxis: Pepcid for gastrointestinal prophylaxis. SCDs to lower extremity for deep vein thrombosis prophylaxis. 7. DISPOSITION: Blood glucose control and renal function. Discharge planning over the weekend if remains stable. Elham Dickerson MD PhD [phone] Subjective 24 Hr Interval Summary Free Text/Dictation Feeling confused last night. Daughter Lashell at her bedside (one of 3 siblings) . No headache or chest pain. But she feels short of breath, despite being on oxygen per nasal cannula. Eating well. Normal bowel movements x 2. Exam/Review of Systems Vital Signs Vitals Vital Signs Date Time Temp Pulse Resp B/P Pulse Ox O2 Delivery O2 Flow Rate FiO2 08/03/16 11:36 80 16 96 Nasal Cannula 2.0 28 08/03/16 10:00 153/68 08/03/16 07:51 98.4 Intake and Output 08/02/16 08/02/16 08/03/16 15:00 23:00 07:00 Intake Total 50 ml 2390 ml 1530 ml Output Total 1500 ml 1500 ml Balance 50 ml 890 ml 30 ml Exam Constitutional: alert, oriented, well developed, mildly anxious. Respiratory: Good air movement, but with mild crackles at the bases bilaterally Cardiovascular: Symmetric pulses, regular rhythm, mildly tachycardic Gastrointestinal: non-tender, soft, positive bowel sounds. Musculoskeletal: No peripheral edema, no arthritis. Neurological: INFO PRINT PRESS OPERATOR II-XII intact, nl mental status, nl speech, nl strength, motor 5/5, toes downgoing. Results Result Diagram: 08/03/16 1050 08/03/16 1050 Results 24 hrs Laboratory Tests Test 08/02/16 17:31 08/02/16 20:41 08/03/16 01:37 08/03/16 07:49 Bedside Glucose 277 H 185 251 H 330 H Test 08/03/16 10:50 08/03/16 12:15 White Blood Count 6.8 Red Blood Count 4.02 L Hemoglobin 10.6 L Hematocrit 31.2 L Mean Corpuscular Volume 77.6 L Mean Corpuscular Hemoglobin 26.4 L Mean Corpuscular Hemoglobin Concent 34.0 Red Cell Distribution Width 14.6 H Platelet Count 249 # Mean Platelet Volume 10.4 Neutrophils % 68.9 Lymphocytes % 15.5 Monocytes % 9.3 Eosinophils % 3.1 Basophils % 0.3 Nucleated Red Blood Cells % 0.0 Neutrophils # 4.7 Lymphocytes # 1.1 Monocytes # 0.6 Eosinophils # 0.2 Basophils # 0.0 Nucleated Red Blood Cells # 0.0 Sodium Level 139 Potassium Level 3.8 Chloride Level 113 H Carbon Dioxide Level 23 Anion Gap 7 L Blood Urea Nitrogen 29 #H Creatinine 1.00 Glucose Level 225 H Calcium Level 8.0 L Phosphorus Level 1.3 L Magnesium Level 2.0 Bedside Glucose 276 H Medications Medications Current Medications Miscellaneous Information 1 ea NOTE XX ; Start 08/01/16 at 17:30 Glucose (Glutose) 15 gm Q15M PRN PO DECREASED GLUCOSE; Start 08/01/16 at 17:30 Glucose (Glutose) 22.5 gm Q15M PRN PO DECREASED GLUCOSE; Start 08/01/16 at 17: 30 Dextrose (D50w Syringe) 25 ml Q15M PRN IV DECREASED GLUCOSE; Start 08/01/16 at 17:30 Dextrose (D50w Syringe) 50 ml Q15M PRN IV DECREASED GLUCOSE; Start 08/01/16 at 17:30 Glucagon (Glucagen) 1 mg Q15M PRN IM DECREASED GLUCOSE; Start 08/01/16 at 17:30 Glucose 15 gm 15 gm Q15M PRN BUCCAL DECREASED GLUCOSE; Start 08/01/16 at 17:30 Sodium Chloride (NS) 1,000 ml @ 75 mls/hr [id number] IV Last administered on 08/03 02:41; Admin Dose 75 MLS/HR; Start 08/01/16 at 19:00 Ondansetron HCl (Zofran Inj) 4 mg Q6H PRN IV NAUSEA AND/OR VOMITING; Start at 17:30 Acetaminophen (Tylenol Tab) 650 mg Q6H PRN PO PAIN LEVEL 1-3 OR FEVER; Start at 17:30 Acetaminophen/ Hydrocodone Bitart ([place] (5/325)) 1 tab Q6H PRN PO MODERATE PAIN LEVEL 4-6; Start 08/01/16 at 17:30 Acetaminophen/ Hydrocodone Bitart ([place] (5/325)) 2 tab Q6H PRN PO SEVERE PAIN LEVEL 7-10; Start 08/01/16 at 17:30 Docusate Sodium (Colace) 100 mg Q12H PRN PO CONSTIPATION; Start 08/01/16 at 17: 30 Magnesium Hydroxide (Milk Of Mag) 30 ml DAILY PRN PO CONSTIPATION; Start at 17:30 Bisacodyl (Dulcolax Supp) 10 mg DAILY PRN [place] CONSTIPATION; Start 08/01/16 at 17 :30 Insulin Glargine (Lantus) 20 unit DAILY SC Last administered on 08/03/16 08:37 ; Admin Dose 20 UNIT; Start 08/02/16 at 20:00 Metoprolol Tartrate (Lopressor) 50 mg BID PO Last administered on 08/03/16 08: 23; Admin Dose 50 MG; Start 08/02/16 at 21:00 Ferrous Sulfate (Ferrous Sulfate (Ec)) 325 mg DAILY PO Last administered on 08:15; Admin Dose 325 MG; Start 08/03/16 at 09:00 Pantoprazole (Protonix Tab) 40 mg DAILY@06 PO Last administered on 08/02/16 14 :42; Admin Dose 40 MG; Start 08/02/16 at 14:00 Aspirin 81 mg 81 mg DAILY PO Last administered on 08/03/16 08:15; Admin Dose 81 MG; Start 08/02/16 at 14:00 Ciprofloxacin/ Dextrose (Cipro Ivpb) 200 ml @ 200 mls/hr Q24H IVPB Last administered on 08/02/16 14:43; Admin Dose 200 MLS/HR; Start 08/02/16 at 14:30 DIANA DICKERSON M.D. Aug 03, 2016 14:12
[2016-08-03] MEDS: CIPROFLOXACIN 400MG/D5W 200 ML IVPB SCH (15:45)
--- NOTE | 2016-08-03 17:30 | RADRPT ---
PROCEDURE: Renal US. CLINICAL INDICATION: Flank pain, urosepsis, pyelonephritis TECHNIQUE: Multiple sonographic images of the kidneys were obtained. The images were reviewed on a PACS workstation. COMPARISON: No prior studies are available for comparison. FINDINGS: The right kidney measures 11.4 cm. The left kidney measures 12.0 cm. The kidneys demonstrate normal echogenicity. A 1.2 cm echogenic, shadowing stone is identified in the superior pole of the left kid domenico. A 7 mm echogenic, shadowing stone is noted in the inferior pole of the right kidney. No hydro nephrosis or solid masses are observed. The bladder is filled with a small amount of urine and has an unremarkable appearance. IMPRESSION: Nonobstructing bilateral renal stones. RPTAT: AA .Emmanuel Ball MD, Date Time Electronically viewed and signed by .Emmanuel Ball MD, MD on 08/03/2016 17:30 .P/
[2016-08-03 17:50] LABS: D-DIMER 2556.3 ng/ml (<460)
[2016-08-03 19:29] VITALS: BP 164/70; RESP 20
--- NOTE | 2016-08-03 20:04 | RADRPT ---
PROCEDURE: PA and lateral chest x-ray. CLINICAL INDICATION: Crackles, dyspnea. TECHNIQUE: PA and lateral views of the chest. COMPARISON: 08/01/2016. FINDINGS: There is vascular congestion and mild interstitial edema, not significantly changed. The cardiac si lhouette is enlarged. No definite pleural effusion is seen. There is no pneumothorax. IMPRESSION: 1. Vascular congestion and mild interstitial edema, not significantly changed. 2. Enlarged cardiac silhouette. RPTAT: HTAR .Jim Conde MD, Date Time Electronically viewed and signed by .Jim Conde MD, MD on 08/03/2016 20:04 .R/
[2016-08-03 21:20] VITALS: BP 179/73; PULSE 91
[2016-08-04 01:00] VITALS: BP 159/69; PULSE 79
[2016-08-04 05:33] VITALS: RESP 20
[2016-08-04] MEDS: PANTOPRAZOLE (EC) 40 MG TAB PO SCH (05:35)
[2016-08-04 07:34] VITALS: BP 196/85; RESP 18
[2016-08-04 07:39] VITALS: BP 190/84
[2016-08-04] MEDS: FERROUS SULFATE (EC) 325 MG TAB PO SCH (07:44)
[2016-08-04] MEDS: ASPIRIN (EC) 81 MG TAB PO SCH (07:44)
[2016-08-04] MEDS: METOPROLOL 50 MG TAB PO SCH ×2 (07:44→19:45)
[2016-08-04] MEDS: Insulin NOVOLOG SS MODERATE Algorithm (SS with meals and bedtime) SC SCH ×4 (07:51→21:00)
[2016-08-04] MEDS: INSULIN ASPART [NOVOLOG] 3 ML PEN SC SCH ×3 (07:51→17:07)
[2016-08-04] MEDS ORDERED: hydrALAzine 20 MG INJ IV ONE (08:00)
[2016-08-04] MEDS: SOD CHLORIDE 0.9% 1,000 ML IV SCH ×2 (08:43→16:33)
[2016-08-04] MEDS ORDERED: INSULIN GLARGINE [LANtus] 3 ML PEN SC SCH (09:00)
[2016-08-04] MEDS ORDERED: INSULIN GLARGINE [LANtus] 3 ML PEN SC STA (10:19)
[2016-08-04] MEDS: CIPROFLOXACIN 400MG/D5W 200 ML IVPB SCH (14:16)
--- NOTE | 2016-08-04 18:36 | RADRPT ---
Vent Rate: 91 bpm RR Interval: 0 msec [place] Interval: 136 msec QRS Duration: 78 msec QT Interval: 382 msec QTC Interval: 469 msec P-R-T [place]: 54 - 76 - 50 degrees Sinus rhythm with premature atrial complexes Cannot rule out Anterior infarct , age undetermined Abnormal ECG Electronically Signed By: Yung Cano [id number]
[2016-08-04 19:00] VITALS: BP 186/84; RESP 18
--- NOTE | 2016-08-04 20:19 | PN ---
Date/Time of Note Date/Time of Note DATE: 08/04/16 TIME: 20:19 Assessment/Plan VTE Prophylaxis VTE Prophylaxis Intervention: SCD's Lines/Catheters IV C[facility]ter Type (from [facility] Peripheral IV Urinary Cath still in place: No Assessment/Plan Assessment/Plan [facility] 1. 71-year-old woman hospital day 3 with E.coli bacteremia, sepsis, and a urinary source. E coli was cultured from two blood samples and urine, shown resistant to cephalosporins, but sensitive to fluoroquinolones and Bactrim. CXR showed mild vascular congestion. * Continue ciprofloxacin * Renal ultrasound showed non-obstructing stones 2. Diabetes mellitus, sugars are better today, after she missed her Lantus last night and had a 300+ sugar in AM. Hemoglobin A1c 8.5%. * Lantus to 25 units qhs starting tonight, with AM lantus of 20 today to make up. * Novolog 13 units qAC * Continue Accuchecks * Stop sliding scale insulin to better gauge what her insulin needs are * DM education 3. Byenl-nb-cgzapcf kidney disease with hypertension * Hold of HCTZ/Triamterene for now * Hold off ARB for now given renal function * On metoprolol 4. Dyspneic since yesteday. Mild basilar crackles on exam. Mild pulmonary vascular congestion on CXR two days ago. * PA/lateral CXR * Blood pressure can tolerate use of a diuretic if necessary 5. , with confusion at night. * Ativan 1 mg IV tonight for insomnia, confusion. 6. Prophylaxis: Pepcid for gastrointestinal prophylaxis. SCDs to lower extremity for deep vein thrombosis prophylaxis. 7. DISPOSITION: Blood glucose control and renal function. Elham Dickerson MD PhD [phone] Subjective 24 Hr Interval Summary Free Text/Dictation Friendly, comfortable-appearing. Mildly anxious, but no chest pain, fever, cough, or dyspnea now. No family members present. Exam/Review of Systems Vital Signs Vitals Vital Signs Date Time Temp Pulse Resp B/P Pulse Ox O2 Delivery O2 Flow Rate FiO2 08/04/16 07:39 190/84 08/04/16 07:34 98.0 89 18 95 08/04/16 05:33 Room Air 08/03/16 11:36 2.0 28 Intake and Output 08/03/16 08/03/1608/04/17 15:00 23:00 07:00 Intake Total 1980 ml 1280 ml Output Total 0 ml 425 ml Balance 1980 ml 855 ml Exam Constitutional: alert, oriented, well developed, mildly anxious. Respiratory: Good air movement, no crackles or wheezing. Cardiovascular: Symmetric pulses, regular rhythm, mildly tachycardic Gastrointestinal: non-tender, soft, positive bowel sounds. Musculoskeletal: No peripheral edema, no arthritis. 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 Results Result Diagram: 08/03/16 1050 08/03/16 1050 Results 24 hrs Laboratory Tests Test 08/03/16 21:18 08/04/16 07:25 08/04/16 09:40 08/04/16 11:04 Bedside Glucose 101 357 H 181 183 Test 08/04/16 16:59 08/04/16 17:56 08/04/16 19:39 Bedside Glucose 122 176 95 Medications Medications Current Medications Miscellaneous Information 1 ea NOTE XX ; Start 08/01/16 at 17:30 Glucose (Glutose) 15 gm Q15M PRN PO DECREASED GLUCOSE; Start 08/01/16 at 17:30 Glucose (Glutose) 22.5 gm Q15M PRN PO DECREASED GLUCOSE; Start 08/01/16 at 17: 30 Dextrose (D50w Syringe) 25 ml Q15M PRN IV DECREASED GLUCOSE; Start 08/01/16 at 17:30 Dextrose (D50w Syringe) 50 ml Q15M PRN IV DECREASED GLUCOSE; Start 08/01/16 at 17:30 Glucagon (Glucagen) 1 mg Q15M PRN IM DECREASED GLUCOSE; Start 08/01/16 at 17:30 Glucose 15 gm 15 gm Q15M PRN BUCCAL DECREASED GLUCOSE; Start 08/01/16 at 17:30 Sodium Chloride (NS) 1,000 ml @ 75 mls/hr [id number] IV Last administered on 08/04t 08:43; Admin Dose 75 MLS/HR; Start 08/01/16 at 19:00 Ondansetron HCl (Zofran Inj) 4 mg Q6H PRN IV NAUSEA AND/OR VOMITING; Start at 17:30 Acetaminophen (Tylenol Tab) 650 mg Q6H PRN PO PAIN LEVEL 1-3 OR FEVER; Start at 17:30 Acetaminophen/ Hydrocodone Bitart ([place] (5/325)) 1 tab Q6H PRN PO MODERATE PAIN LEVEL 4-6; Start 08/01/16 at 17:30 Acetaminophen/ Hydrocodone Bitart ([place] (5/325)) 2 tab Q6H PRN PO SEVERE PAIN LEVEL 7-10; Start 08/01/16 at 17:30 Docusate Sodium (Colace) 100 mg Q12H PRN PO CONSTIPATION; Start 08/01/16 at 17: 30 Magnesium Hydroxide (Milk Of Mag) 30 ml DAILY PRN PO CONSTIPATION; Start at 17:30 Bisacodyl (Dulcolax Supp) 10 mg DAILY PRN [place] CONSTIPATION; Start 08/01/16 at 17 :30 Metoprolol Tartrate (Lopressor) 50 mg BID PO Last administered on 08/04/16 19: 45; Admin Dose 50 MG; Start 08/02/16 at 21:00 Ferrous Sulfate (Ferrous Sulfate (Ec)) 325 mg DAILY PO Last administered on 07:44; Admin Dose 325 MG; Start 08/03/16 at 09:00 Pantoprazole (Protonix Tab) 40 mg DAILY@06 PO Last administered on 08/04/16 05 :35; Admin Dose 40 MG; Start 08/02/16 at 14:00 Aspirin 81 mg 81 mg DAILY PO Last administered on 08/04/16 07:44; Admin Dose 81 MG; Start 08/02/16 at 14:00 Ciprofloxacin/ Dextrose (Cipro Ivpb) 200 ml @ 200 mls/hr Q24H IVPB Last administered on 08/04/16 14:16; Admin Dose 200 MLS/HR; Start 08/02/16 at 14:30 Insulin Glargine (Lantus) 30 unit QHS SC ; Start 08/04/16 at 21:00 DIANA DICKERSON M.D. Aug 04, 2016 20:19
[2016-08-04] MEDS: INSULIN GLARGINE [LANtus] 3 ML PEN SC SCH (21:57)
[2016-08-04 22:00] VITALS: BP 174/76; PULSE 73
[2016-08-05] VITALS: BP 173/74; PULSE 91
[2016-08-05] MEDS ORDERED: hydrALAzine 20 MG INJ IV ONE (00:30)
[2016-08-05 00:40] VITALS: BP 191/79; PULSE 92
[2016-08-05] MEDS ORDERED: SOD CHLORIDE 0.9% 1,000 ML IV SCH (01:00)
[2016-08-05] MEDS ORDERED: LORAZEPAM 2 MG INJ IV ONE (01:00)
[2016-08-05] MEDS: PANTOPRAZOLE (EC) 40 MG TAB PO SCH (05:51)
[2016-08-05 07:36] VITALS: BP 167/74; RESP 20
[2016-08-05] MEDS: METOPROLOL 50 MG TAB PO SCH ×2 (08:07→20:49)
[2016-08-05] MEDS: FERROUS SULFATE (EC) 325 MG TAB PO SCH (08:07)
[2016-08-05] MEDS: ASPIRIN (EC) 81 MG TAB PO SCH (08:07)
[2016-08-05] MEDS: Insulin NOVOLOG SS MODERATE Algorithm (SS with meals and bedtime) SC SCH ×4 (08:22→20:50)
[2016-08-05] MEDS: INSULIN ASPART [NOVOLOG] 3 ML PEN SC SCH ×3 (08:22→17:55)
[2016-08-05] MEDS: HYDROCHLOROTHIAZIDE 25 MG TAB PO SCH (09:52)
[2016-08-05] MEDS: LOSARTAN 25 MG TAB PO SCH ×2 (09:52→18:01)
[2016-08-05 10:19] LABS: ADD SCAN DIFF NO
[2016-08-05 10:25] LABS: BASOPHILS % 0.3 % (0.0-2.0); EOSINOPHILS # 0.2 10^3/ul (0.0-0.5); EOSINOPHILS % 2.5 % (0.0-7.0); HEMATOCRIT 30.9 % (37.0-47.0); LYMPHOCYTES # 1.3 10^3/ul (0.8-2.9); MEAN CORPUSCULAR HEMOGLOBIN 25.8 pg (29.0-33.0); MEAN CORPUSCULAR HGB CONC 32.4 g/dl (32.0-37.0); MEAN CORPUSCULAR VOLUME 79.8 fl (82.0-101.0); MEAN PLATELET VOLUME 10.3 fl (7.4-10.4); MONOCYTE # 0.4 10^3/ul (0.3-0.9); MONOCYTES % 5.1 % (0.0-11.0); NEUTROPHIL # 4.7 10^3/ul (1.6-7.5); NEUTROPHILS % 68.7 % (39.0-77.0); PLATELET COUNT 300 10^3/UL (140-415); RED BLOOD COUNT 3.87 10^6/ul (4.20-5.40); RED CELL DISTRIBUTION WIDTH 15.2 % (11.5-14.5); WHITE BLOOD COUNT 6.9 10^3/ul (4.8-10.8)
[2016-08-05 10:43] LABS: CREATININE 1.03 mg/dl (0.44-1.00)
[2016-08-05 10:44] LABS: CALCIUM 7.8 mg/dl (8.4-10.2); MAGNESIUM 1.4 mg/dl (1.7-2.5)
[2016-08-05] MEDS ORDERED: MAGNESIUM SULFATE 2 GM/50 ML 50 ML IVPB ONE (14:00)
[2016-08-05] MEDS: POTASSIUM CHLORIDE (SR) 20 MEQ TAB PO SCH ×3 (14:06→20:49)
[2016-08-05] MEDS: CIPROFLOXACIN 400MG/D5W 200 ML IVPB SCH (14:06)
[2016-08-05] MEDS ORDERED: QUETIAPINE 25 MG TAB PO PRN (16:30)
--- NOTE | 2016-08-05 16:32 | PN ---
Date/Time of Note Date/Time of Note DATE: 08/05/16 TIME: 15:41 Assessment/Plan VTE Prophylaxis VTE Prophylaxis Intervention: ambulation, SCD's Lines/Catheters IV Catheter Type (from Nrs): Peripheral IV Urinary Cath still in place: No Assessment/Plan Assessment/Plan 71-year-old female with: 1. E coli urinary tract infection and bacteremia based on cx result from 07/30 and repeat cultures on this admission NGTD Continue Ciprofloxacin, Renal ultrasound wnl and renal function back to normal Follow up repeat blood and urine cx on this admission 2. Diabetes mellitus, not very well controlled, based on patient's reports of blood sugars at home. Hemoglobin A1c 8.5 today Lantus up to 30 qhs along with Novolog 13 units qAC currently Continue Accuchecks with moderate SSI for now DM education appreciated 3. ARELY on likely Chronic kidney disease. Renal function better off IVF and good po intake Repleting K and Mag 4. Hypertension: on Metoprolol, resuming HCTZ and added Cozaar Prophylaxis: Pepcid for gastrointestinal prophylaxis. SCDs to lower extremity for deep vein thrombosis prophylaxis. DISPOSITION: Follow up BP and Blood glucose control and renal function Discharge planning in the next 48 hrs if remains stable. Subjective 24 Hr Interval Summary Free Text/Dictation Patient feels better, no complaints Afebrile, WBC wnl BG better and repleting K and Mag Exam/Review of Systems Vital Signs Vitals Vital Signs Date Time Temp Pulse Resp B/P Pulse Ox O2 Delivery O2 Flow Rate FiO2 08/05/16 07:36 98.4 100 20 167/74 94 08/04/16 05:33 Room Air 08/03/16 11:36 2.0 28 Intake and Output 08/04/16 08/04/16 08/05/16 15:00 23:00 07:00 Intake Total 1280 ml 1400 ml Output Total 300 ml 500 ml Balance 980 ml 900 ml Exam Constitutional: alert, oriented, well developed Respiratory: clear to auscultation, normal air movement Cardiovascular: nl pulses, regular rate and rhythm Gastrointestinal: non-tender, soft Musculoskeletal: nl extremities to inspection Extremities: normal pulses, other (no edema, clubbingor cyanosis ) Neurological: CYBER SECURITY MANAGER II-XII intact, nl mental status, nl speech, nl strength Results Result Diagram: 08/05/1690408/05/16904 Results 24 hrs Laboratory Tests Test 08/04/16 16:59 08/04/16 17:56 08/04/16 19:39 08/04/16 21:50 Bedside Glucose 122 176 95 115 Test 08/05/16 08:03 08/05/16 09:05 08/05/16 11:53 Bedside Glucose 373 H 145 White Blood Count 6.9 Red Blood Count 3.87 L Hemoglobin 10.0 L Hematocrit 30.9 L Mean Corpuscular Volume 79.8 L Mean Corpuscular Hemoglobin 25.8 L Mean Corpuscular Hemoglobin Concent 32.4 Red Cell Distribution Width 15.2 H Platelet Count 300 # Mean Platelet Volume 10.3 Neutrophils % 68.7 Lymphocytes % 19.0 Monocytes % 5.1 Eosinophils % 2.5 Basophils % 0.3 Nucleated Red Blood Cells % 0.0 Neutrophils # 4.7 Lymphocytes # 1.3 Monocytes # 0.4 Eosinophils # 0.2 Basophils # 0.0 Nucleated Red Blood Cells # 0.0 Sodium Level 143 Potassium Level 3.0 L Chloride Level 110 Carbon Dioxide Level 21 Anion Gap 15 # Blood Urea Nitrogen 20 Creatinine 1.03 H Glucose Level 306 H Calcium Level 7.8 L Magnesium Level 1.4 L Medications Medications Current Medications Miscellaneous Information 1 ea NOTE XX ; Start 08/01/16 at 17:30 Glucose (Glutose) 15 gm Q15M PRN PO DECREASED GLUCOSE; Start 08/01/16 at 17:30 Glucose (Glutose) 22.5 gm Q15M PRN PO DECREASED GLUCOSE; Start 08/01/16 at 17: 30 Dextrose (D50w Syringe) 25 ml Q15M PRN IV DECREASED GLUCOSE; Start 08/01/16 at 17:30 Dextrose (D50w Syringe) 50 ml Q15M PRN IV DECREASED GLUCOSE; Start 08/01/16 at 17:30 Glucagon (Glucagen) 1 mg Q15M PRN IM DECREASED GLUCOSE; Start 08/01/16 at 17:30 Glucose (Glutose) 15 gm Q15M PRN BUCCAL DECREASED GLUCOSE; Start 08/01/16 at 17 :30 Ondansetron HCl (Zofran Inj) 4 mg Q6H PRN IV NAUSEA AND/OR VOMITING; Start at 17:30 Acetaminophen (Tylenol Tab) 650 mg Q6H PRN PO PAIN LEVEL 1-3 OR FEVER; Start at 17:30 Acetaminophen/ Hydrocodone Bitart ([place] (5/325)) 1 tab Q6H PRN PO MODERATE PAIN LEVEL 4-6; Start 08/01/16 at 17:30 Acetaminophen/ Hydrocodone Bitart ([place] (5/325)) 2 tab Q6H PRN PO SEVERE PAIN LEVEL 7-10; Start 08/01/16 at 17:30 Docusate Sodium (Colace) 100 mg Q12H PRN PO CONSTIPATION; Start 08/01/16 at 17: 30 Magnesium Hydroxide (Milk Of Mag) 30 ml DAILY PRN PO CONSTIPATION; Start at 17:30 Bisacodyl (Dulcolax Supp) 10 mg DAILY PRN [place] CONSTIPATION; Start 08/01/16 at 17 :30 Metoprolol Tartrate (Lopressor) 50 mg BID PO Last administered on 08/05/16 08: 07; Admin Dose 50 MG; Start 08/02/16 at 21:00 Ferrous Sulfate (Ferrous Sulfate (Ec)) 325 mg DAILY PO Last administered on 08:07; Admin Dose 325 MG; Start 08/03/16 at 09:00 Pantoprazole (Protonix Tab) 40 mg DAILY@06 PO Last administered on 08/05/16 05 :51; Admin Dose 40 MG; Start 08/02/16 at 14:00 Aspirin 81 mg 81 mg DAILY PO Last administered on 08/05/16 08:07; Admin Dose 81 MG; Start 08/02/16 at 14:00 Ciprofloxacin/ Dextrose (Cipro Ivpb) 200 ml @ 200 mls/hr Q24H IVPB Last administered on 08/05/16 14:06; Admin Dose 200 MLS/HR; Start 08/02/16 at 14:30 Insulin Glargine 30 unit 30 unit QHS SC Last administered on 08/04/16 21:57; Admin Dose 30 UNIT; Start 08/04/16 at 21:00 Sodium Chloride (NS) 1,000 ml @ 0 mls/hr Q0M IV Last administered on 00:57; Admin Dose 10 MLS/HR; Start 08/05/16 at 01:00 Hydrochlorothiazide (Hydrochlorothiazide) 25 mg DAILY PO Last administered on 09:52; Admin Dose 25 MG; Start 08/05/16 at 09:30 Losartan Potassium 25 mg 25 mg BID PO Last administered on 08/05/16 09:52; Admin Dose 25 MG; Start 08/05/16 at 09:30 Magnesium Sulfate (Magnesium Sulfate 2 Gm/50 ml) 50 ml @ 25 mls/hr ONCE ONCE IVPB ; Start 08/05/16 at 14:00; Stop 08/05/16 at 15:59 Potassium Chloride (Klor-Con 20) 40 meq Q4H PO Last administered on 08/05/16 14:06; Admin Dose 40 MEQ; Start 08/05/16 at 14:00 Procedures Procedures PROCEDURE: Renal US. CLINICAL INDICATION: Flank pain, urosepsis, pyelonephritis TECHNIQUE: Multiple sonographic images of the kidneys were obtained. The images were reviewed on a PACS workstation. COMPARISON: No prior studies are available for comparison. FINDINGS: The right kidney measures 11.4 cm. The left kidney measures 12.0 cm. The kidneys demonstrate normal echogenicity. A 1.2 cm echogenic, shadowing stone is identified in the superior pole of the left kidney. A 7 mm echogenic, shadowing stone is noted in the inferior pole of the right kidney. No hydronephrosis or solid masses are observed. The bladder is filled with a small amount of urine and has an unremarkable appearance. IMPRESSION: Nonobstructing bilateral renal stones. RPTAT: AA .Emmanuel Ball MD, Date Time Electronically viewed and signed by .Emmanuel Ball MD, on 08/03/2016 17:30 GENA PIKE Aug 05, 2016 15:52
[2016-08-05] MEDS ORDERED: hydrALAzine 20 MG INJ IV PRN (18:00)
[2016-08-05 20:21] VITALS: BP 153/65; RESP 16
[2016-08-05] MEDS: INSULIN GLARGINE [LANtus] 3 ML PEN SC SCH (20:48)
[2016-08-06] MEDS ORDERED: CIPROFLOXACIN 400MG/D5W 200 ML IVPB SCH (02:00)
[2016-08-06] MEDS: POTASSIUM CHLORIDE (SR) 20 MEQ TAB PO SCH (03:35)
[2016-08-06 05:40] LABS: MAGNESIUM 1.8 mg/dl (1.7-2.5); PHOSPHORUS 2.7 mg/dl (2.5-4.9)
[2016-08-06 05:41] LABS: CALCIUM 7.6 mg/dl (8.4-10.2); CREATININE 0.91 mg/dl (0.44-1.00); POTASSIUM 4.5 mmol/L (3.5-5.1)
[2016-08-06] MEDS: PANTOPRAZOLE (EC) 40 MG TAB PO SCH (06:05)
[2016-08-06 07:33] VITALS: BP 157/65; RESP 20
[2016-08-06] MEDS: INSULIN ASPART [NOVOLOG] 3 ML PEN SC SCH ×3 (08:06→17:40)
[2016-08-06] MEDS: Insulin NOVOLOG SS MODERATE Algorithm (SS with meals and bedtime) SC SCH ×4 (08:06→21:00)
[2016-08-06] MEDS: METOPROLOL 50 MG TAB PO SCH ×2 (08:58→21:03)
[2016-08-06] MEDS: ASPIRIN (EC) 81 MG TAB PO SCH (08:58)
[2016-08-06] MEDS: FERROUS SULFATE (EC) 325 MG TAB PO SCH (08:58)
[2016-08-06] MEDS: LOSARTAN 25 MG TAB PO SCH ×2 (08:59→21:03)
[2016-08-06] MEDS: HYDROCHLOROTHIAZIDE 25 MG TAB PO SCH (08:59)
[2016-08-06 11:33] VITALS: BP 138/65; PULSE 74
--- NOTE | 2016-08-06 12:02 | PN ---
Date/Time of Note Date/Time of Note DATE: 08/06/16 TIME: 11:51 Assessment/Plan VTE Prophylaxis VTE Prophylaxis Intervention: SCD's Lines/Catheters IV C[facility] Type (from [facility] Saline Lock Urinary Cath still in place: No Assessment/Plan Assessment/Plan 71-year-old female with: 1. E coli urinary tract infection and bacteremia based on cx result from 07/30 and repeat cultures on this admission NGTD Continue Ciprofloxacin po Q12h x total of 14 days Renal ultrasound wnl Repeat blood and urine cx negative. 2. Diabetes mellitus, not very well controlled, based on patient's reports of blood sugars at home. Hemoglobin A1c 8.5 today High BG in AM only, please stop giving snacks at bedtime if patient no hypoglycemic ... Continue Lantus 30 units qhs along with Novolog 13 units qAC currently Continue Accuchecks with moderate SSI for now DM education appreciated 3. ARELY on likely Chronic kidney disease. Renal function back to normal off IVF and good po intake Repleting Mag today 4. Hypertension: on Metoprolol, HCTZ and Cozaar now. BP better controlled Prophylaxis: Pepcid for gastrointestinal prophylaxis. SCDs to lower extremity for deep vein thrombosis prophylaxis. DISPOSITION: Follow up BP and Blood glucose control. Discharge planning home tomorrow. Subjective 24 Hr Interval Summary Free Text/Dictation Patient doing well this AM No complaints of rash this AM, NO confusion or hallucinations last night. Renal function back to baseline and patient to be switched to po abx today Exam/Review of Systems Vital Signs Vitals Vital Signs Date Time Temp Pulse Resp B/P Pulse Ox O2 Delivery O2 Flow Rate FiO2 08/06/16 11:33 74 138/65 08/06/16 07:33 97.2 20 95 08/04/16 05:33 Room Air 08/03/16 11:36 2.0 28 Intake and Output 08/05/16 08/05/16 08/06/16 15:00 23:00 07:00 Intake Total 1200 ml 300 ml Output Total 1100 ml Balance 100 ml 300 ml Exam Constitutional: alert, oriented, well developed Respiratory: clear to auscultation, normal air movement Cardiovascular: nl pulses, regular rate and rhythm Gastrointestinal: non-tender, soft Musculoskeletal: nl extremities to inspection Extremities: normal pulses, other (no edema, clubbing or cyanosis ) Neurological: OLIVE PICKER II-XII intact, nl mental status, nl speech, nl strength Results Result Diagram: 08/05/16 0905 08/06/16 0453 Results 24 hrs Laboratory Tests Test 08/05/16 11:53 08/05/16 16:57 08/05/16 20:44 08/06/16 04:53 Bedside Glucose 145 190 114 Sodium Level 136 Potassium Level 4.5 Chloride Level 110 Carbon Dioxide Level 23 Anion Gap 8 Blood Urea Nitrogen 18 Creatinine 0.91 Glucose Level 345 H Calcium Level 7.6 L Phosphorus Level 2.7 Magnesium Level 1.8 Test 08/06/16 07:59 Bedside Glucose 348 H Medications Medications Current Medications Miscellaneous Information 1 ea NOTE XX ; Start 08/01/16 at 17:30 Glucose (Glutose) 15 gm Q15M PRN PO DECREASED GLUCOSE; Start 08/01/16 at 17:30 Glucose (Glutose) 22.5 gm Q15M PRN PO DECREASED GLUCOSE; Start 08/01/16 at 17: 30 Dextrose (D50w Syringe) 25 ml Q15M PRN IV DECREASED GLUCOSE; Start 08/01/16 at 17:30 Dextrose (D50w Syringe) 50 ml Q15M PRN IV DECREASED GLUCOSE; Start 08/01/16 at 17:30 Glucagon (Glucagen) 1 mg Q15M PRN IM DECREASED GLUCOSE; Start 08/01/16 at 17:30 Glucose (Glutose) 15 gm Q15M PRN BUCCAL DECREASED GLUCOSE; Start 08/01/16 at 17 :30 Ondansetron HCl (Zofran Inj) 4 mg Q6H PRN IV NAUSEA AND/OR VOMITING; Start at 17:30 Acetaminophen (Tylenol Tab) 650 mg Q6H PRN PO PAIN LEVEL 1-3 OR FEVER; Start at 17:30 Acetaminophen/ Hydrocodone Bitart ([place] (5/325)) 1 tab Q6H PRN PO MODERATE PAIN LEVEL 4-6; Start 08/01/16 at 17:30 Acetaminophen/ Hydrocodone Bitart ([place] (5/325)) 2 tab Q6H PRN PO SEVERE PAIN LEVEL 7-10; Start 08/01/16 at 17:30 Docusate Sodium (Colace) 100 mg Q12H PRN PO CONSTIPATION; Start 08/01/16 at 17: 30 Magnesium Hydroxide (Milk Of Mag) 30 ml DAILY PRN PO CONSTIPATION; Start at 17:30 Bisacodyl (Dulcolax Supp) 10 mg DAILY PRN [place] CONSTIPATION; Start 08/01/16 at 17 :30 Metoprolol Tartrate (Lopressor) 50 mg BID PO Last administered on 08/06/16 08: 58; Admin Dose 50 MG; Start 08/02/16 at 21:00 Ferrous Sulfate (Ferrous Sulfate (Ec)) 325 mg DAILY PO Last administered on 08:58; Admin Dose 325 MG; Start 08/03/16 at 09:00 Pantoprazole (Protonix Tab) 40 mg DAILY@06 PO Last administered on 08/06/16 06 :05; Admin Dose 40 MG; Start 08/02/16 at 14:00 Aspirin (Halfprin) 81 mg DAILY PO Last administered on 08/06/16 08:58; Admin Dose 81 MG; Start 08/02/16 at 14:00 Insulin Glargine 30 unit 30 unit QHS SC Last administered on 08/05/16 20:48; Admin Dose 30 UNIT; Start 08/04/16 at 21:00 Sodium Chloride (NS) 1,000 ml @ 0 mls/hr Q0M IV Last administered on 00:57; Admin Dose 10 MLS/HR; Start 08/05/16 at 01:00 Hydrochlorothiazide (Hydrochlorothiazide) 25 mg DAILY PO Last administered on 08:59; Admin Dose 25 MG; Start 08/05/16 at 09:30 Losartan Potassium (Cozaar) 25 mg BID PO Last administered on 08/06/16 08:59; Admin Dose 25 MG; Start 08/05/16 at 09:30 Quetiapine Fumarate (Seroquel) 25 mg HS PRN PO AGITATION Last administered on 20:49; Admin Dose 25 MG; Start 08/05/16 at 16:30 Hydralazine HCl (Apresoline) 10 mg Q8H PRN IV ELEVATED BLOOD PRESSURE; Start at 18:00 Ciprofloxacin (Cipro) 500 mg Q12 PO ; Start 08/06/16 at 12:00; Status GENA AVINA Aug 06, 2016 12:02
[2016-08-06] MEDS: CIPROFLOXACIN 500 MG TAB PO SCH ×2 (12:28→21:02)
[2016-08-06] MEDS ORDERED: MAGNESIUM SULFATE 2 GM/50 ML 50 ML IVPB ONE (13:00)
[2016-08-06 20:18] VITALS: BP 176/76; RESP 20
[2016-08-06] MEDS: INSULIN GLARGINE [LANtus] 3 ML PEN SC SCH (21:12)
[2016-08-06 23:00] VITALS: BP 158/68
[2016-08-07] MEDS: PANTOPRAZOLE (EC) 40 MG TAB PO SCH (05:26)
[2016-08-07 05:54] LABS: MAGNESIUM 1.8 mg/dl (1.7-2.5); PHOSPHORUS 3.3 mg/dl (2.5-4.9); POTASSIUM 4.6 mmol/L (3.5-5.1)
[2016-08-07 05:56] LABS: CREATININE 0.95 mg/dl (0.44-1.00)
[2016-08-07 05:57] LABS: CALCIUM 8.3 mg/dl (8.4-10.2)
[2016-08-07 07:33] VITALS: BP 195/77; RESP 20
[2016-08-07] MEDS: Insulin NOVOLOG SS MODERATE Algorithm (SS with meals and bedtime) SC SCH ×3 (07:53→17:32)
[2016-08-07] MEDS: INSULIN ASPART [NOVOLOG] 3 ML PEN SC SCH ×3 (07:56→17:32)
[2016-08-07] MEDS: CIPROFLOXACIN 500 MG TAB PO SCH (08:32)
[2016-08-07] MEDS: FERROUS SULFATE (EC) 325 MG TAB PO SCH (08:32)
[2016-08-07] MEDS: ASPIRIN (EC) 81 MG TAB PO SCH (08:32)
[2016-08-07] MEDS: LOSARTAN 25 MG TAB PO SCH (08:33)
[2016-08-07] MEDS: METOPROLOL 50 MG TAB PO SCH (08:33)
[2016-08-07] MEDS: HYDROCHLOROTHIAZIDE 25 MG TAB PO SCH (08:33)
[2016-08-07 08:38] VITALS: BP 157/70; PULSE 86
[2016-08-07] MEDS: LACTOBACILLUS RHAMNOSUS CAP PO SCH ×2 (14:00→15:34)
[2016-08-07] MEDS ORDERED: FUROSEMIDE 20 MG INJ IV ONE (14:00)
--- NOTE | 2016-08-07 14:02 | PN ---
Date/Time of Note Date/Time of Note DATE: 08/07/16 TIME: 13:33 Assessment/Plan VTE Prophylaxis VTE Prophylaxis Intervention: SCD's Lines/Catheters IV [facility] Saline Lock Urinary Cath still in place: No Assessment/Plan Assessment/Plan 71-year-old female with: 1. E coli urinary tract infection and bacteremia based on cx result from 07/30 and repeat cultures on this admission NGTD Continue Ciprofloxacin po Q12h x total of 14 days Renal ultrasound wnl Repeat blood and urine cx negative. 2. Diabetes mellitus, not very well controlled, based on patient's reports of blood sugars at home. Hemoglobin A1c 8.5 today High BG in AM only, please stop giving snacks at bedtime if patient no hypoglycemic ... Continue Lantus 30 units qhs along with Novolog 13 units qAC currently Continue Accuchecks with moderate SSI for now DM education appreciated To follow up with her PCP on 08/08 at 11 45 am 3. ARELY on likely Chronic kidney disease. Renal function back to normal Good po intake 4. Hypertension: on Metoprolol, HCTZ and Cozaar now. BP better controlled Prophylaxis: Pepcid for gastrointestinal prophylaxis. SCDs to lower extremity for deep vein thrombosis prophylaxis. DISPOSITION: Discharge home today and to follow up with Dr Spears tomorrow AM at 11 45 am. Subjective 24 Hr Interval Summary Free Text/Dictation Patient doing better everyday and no complaints today She has ambulated with RN on floor on RA and good UOP Some LE edema noted and patient will be given 1 dose of Lasix Amber Lobo updated of discharge plan for today and she will available to pick out hand patient after 5 30 pm Exam/Review of Systems Vital Signs Vitals Vital Signs Date Time Temp Pulse Resp B/P Pulse Ox O2 Delivery O2 Flow Rate FiO2 08/07/16 08:38 86 157/70 08/07/16 07:33 97.7 20 93 08/04/16 05:33 Room Air 08/03/16 11:36 2.0 28 Intake and Output 08/06/16 08/06/16 08/07/16 15:00 23:00 07:00 Intake Total 40 ml 1580 ml 700 ml Output Total 600 ml 1700 ml 960 ml Balance -560 ml -120 ml -260 ml Exam Constitutional: alert, oriented, well developed Respiratory: clear to auscultation, normal air movement Cardiovascular: nl pulses, regular rate and rhythm Musculoskeletal: nl extremities to inspection, nl gait and stance Extremities: normal pulses Neurological: 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'S TUTOR NURSERY II-XII intact, nl mental status, nl speech, nl strength Results Result Diagram: 08/05/16 0905 08/07/16 0507 Results 24 hrs Laboratory Tests Test 08/06/16 17:21 08/06/16 21:02 08/07/16 05:07 08/07/16 07:49 Bedside Glucose 239 H 144 319 H Sodium Level 139 Potassium Level 4.6 Chloride Level 104 Carbon Dioxide Level 25 Anion Gap 15 # Blood Urea Nitrogen 18 Creatinine 0.95 Glucose Level 320 H Calcium Level 8.3 L Phosphorus Level 3.3 Magnesium Level 1.8 Test 08/07/16 12:01 Bedside Glucose 240 H Medications Medications Current Medications Miscellaneous Information 1 ea NOTE XX ; Start 08/01/16 at 17:30 Glucose (Glutose) 15 gm Q15M PRN PO DECREASED GLUCOSE; Start 08/01/16 at 17:30 Glucose (Glutose) 22.5 gm Q15M PRN PO DECREASED GLUCOSE; Start 08/01/16 at 17: 30 Dextrose (D50w Syringe) 25 ml Q15M PRN IV DECREASED GLUCOSE; Start 08/01/16 at 17:30 Dextrose (D50w Syringe) 50 ml Q15M PRN IV DECREASED GLUCOSE; Start 08/01/16 at 17:30 Glucagon (Glucagen) 1 mg Q15M PRN IM DECREASED GLUCOSE; Start 08/01/16 at 17:30 Glucose (Glutose) 15 gm Q15M PRN BUCCAL DECREASED GLUCOSE; Start 08/01/16 at 17 :30 Ondansetron HCl (Zofran Inj) 4 mg Q6H PRN IV NAUSEA AND/OR VOMITING; Start at 17:30 Acetaminophen (Tylenol Tab) 650 mg Q6H PRN PO PAIN LEVEL 1-3 OR FEVER; Start at 17:30 Acetaminophen/ Hydrocodone Bitart ([place] (5/325)) 1 tab Q6H PRN PO MODERATE PAIN LEVEL 4-6; Start 08/01/16 at 17:30 Acetaminophen/ Hydrocodone Bitart ([place] (5/325)) 2 tab Q6H PRN PO SEVERE PAIN LEVEL 7-10; Start 08/01/16 at 17:30 Docusate Sodium (Colace) 100 mg Q12H PRN PO CONSTIPATION; Start 08/01/16 at 17: 30 Magnesium Hydroxide (Milk Of Mag) 30 ml DAILY PRN PO CONSTIPATION; Start at 17:30 Bisacodyl (Dulcolax Supp) 10 mg DAILY PRN [place] CONSTIPATION; Start 08/01/16 at 17 :30 Metoprolol Tartrate (Lopressor) 50 mg BID PO Last administered on 08/07/16 08: 33; Admin Dose 50 MG; Start 08/02/16 at 21:00 Ferrous Sulfate (Ferrous Sulfate (Ec)) 325 mg DAILY PO Last administered on 08:32; Admin Dose 325 MG; Start 08/03/16 at 09:00 Pantoprazole (Protonix Tab) 40 mg DAILY@06 PO Last administered on 08/07/16 05 :26; Admin Dose 40 MG; Start 08/02/16 at 14:00 Aspirin (Halfprin) 81 mg DAILY PO Last administered on 08/07/16 08:32; Admin Dose 81 MG; Start 08/02/16 at 14:00 Insulin Glargine (Lantus) 30 unit QHS SC Last administered on 08/06/16 21:12; Admin Dose 30 UNIT; Start 08/04/16 at 21:00 Hydrochlorothiazide (Hydrochlorothiazide) 25 mg DAILY PO Last administered on 08:33; Admin Dose 25 MG; Start 08/05/16 at 09:30 Losartan Potassium (Cozaar) 25 mg BID PO Last administered on 08/07/16 08:33; Admin Dose 25 MG; Start 08/05/16 at 09:30 Quetiapine Fumarate (Seroquel) 25 mg HS PRN PO AGITATION Last administered on 20:49; Admin Dose 25 MG; Start 08/05/16 at 16:30 Hydralazine HCl (Apresoline) 10 mg Q8H PRN IV ELEVATED BLOOD PRESSURE; Start at 18:00 Ciprofloxacin (Cipro) 500 mg Q12 PO Last administered on 08/07/16 08:32; Admin Dose 500 MG; Start 08/06/16 at 12:00 GENA PIKE Aug 07, 2016 13:43
--- NOTE | 2016-08-07 14:08 | PDOCDIS ---
Discharge Instructions CONDITION Patient Condition: Good HOME CARE INSTRUCTIONS: Special Diet: CARB CONTROLLED ACTIVITY: Activity Restrictions: Slowly Increase Activity FOLLOW UP/APPOINTMENTS Appointments Follow up with PCP Dr Awa Spears tomorrow AM at 11 45 am Please stop triamterene/hCTZ pills and valsartan Ok to continue all other home meds including ASA, Metoprolol, Ferrous sulfate, rosuvastatin, Novolog, and current dosing of Lantus (30 units qhs). GENA PIKE Aug 07, 2016 14:08
[2016-08-07] MEDS ORDERED: FER325 PO (14:17)
[2016-08-07] MEDS ORDERED: HYD25 PO (14:17)
[2016-08-07] MEDS ORDERED: CIPR500T4 PO (14:17)
[2016-08-07] MEDS ORDERED: INSU100C SQ (14:17)
[2016-08-07] MEDS ORDERED: LOSA25TA5 PO (14:17)
[2016-08-07] MEDS ORDERED: ASPI-664 PO (14:17)
[2016-08-07] MEDS ORDERED: LANT3I SC (14:17)
[2016-08-07] MEDS ORDERED: LACT1CAP57 PO (14:17)
[2016-08-07] MEDS ORDERED: METO-429 PO (14:17)
[2016-08-07 14:57] VITALS: BP 144/67; PULSE 70
[2016-08-07] MEDS ORDERED: FUROSEMIDE 20 MG TAB PO ONE (15:00)
[2016-08-07 16:47] VITALS: BP 143/64; PULSE 84
--- NOTE | 2016-08-08 11:29 | DS ---
DATE OF ADMISSION: 08/01/2016 DATE OF DISCHARGE: 08/07/2016 ADMITTING PHYSICIAN: Dr. Sierra DISCHARGING PHYSICIAN: Dr. Sierra CHIEF COMPLAINT ON ADMISSION: Positive blood cultures. BRIEF HISTORY OF PRESENT ILLNESS: This is a 71-year-old female with uncontrolled diabetes mellitus, hypertension who presented to the emergency department with ongoing lethargy. The patient was actu ally called back to the emergency department due to positive blood cultures reported. Upon arrival, she was found to be lethargic. Her blood sugars were up to 500, almost 600. She was recultured, s tarted on IV antibiotics, started on insulin for blood sugar control and IV fluids. HOSPITAL COURSE: The patient was admitted to a medical/surgical bed. Her vital signs were stable; however, she was found to be in acute kidney injury secondary to prerenal azotemia in the setting o f severe hyperglycemia. She was restarted on Lantus at first on 20 units subcutaneously at bedtime along with sliding scale insulin and premeal insulin. She was aggressively rehydrated and maintaine d on IV antibiotics. Her Escherichia coli on her blood cultures and urine cultures came back sensit pepito to ciprofloxacin. Therefore, her antibiotic regimen was switched to ciprofloxacin IV. Her bloo d sugar became finally controlled as much as possible with Lantus 30 units subcutaneously at bedtime along with 8 to 13 units of insulin premeal. Her appetite did improve. She started eating again. She is able to ambulate in the hallway on room air. She has no urinary complaints. Her renal func tion is back to baseline and her electrolytes have corrected during her stay. Her repeat blood cult ures are negative. Repeat urine cultures negative. She is being discharged home on ciprofloxacin a nd the current regimen of insulin. I have recommended for her to follow up with her primary care ph ysician and she does have a scheduled appointment on 08/08/2016, and she may also need a referral to endocrinology. She was found to be hypertensive; therefore, her medications were adjusted during t his stay. She is on a dual diuretic, triamterene and hydrochlorothiazide, which is simplified to hy drochlorothiazide only, given her prerenal azotemia and electrolyte abnormalities upon admission. The patient was discharged in stable condition. DISPOSITION: Discharge home. DISCHARGE CONDITION: Stable. DISCHARGE DIET: Diabetic diet. DISCHARGE ACTIVITY: Resume home activity as tolerated. FOLLOWUP: The patient is to follow up with her primary care physician, Dr. Awa Spears, which i s scheduled for 08/08/2016 at 11:45 a.m. She is recommended to stop her triamterene/hydrochlorothia zide and also her Valsartan. She has been put now on hydrochlorothiazide only, and her home medicat ions have been reconciliated appropriately. DISCHARGE DIAGNOSES: 1. Escherichia coli urinary tract infection and bacteremia. 2. Diabetes mellitus, not well controlled. 3. Acute kidney injury, resolved. 4. Hypertension. DISCHARGE MEDICATIONS 1. Aspirin 81 mg p.o. daily. 2. Ciprofloxacin 500 mg p.o. q.12h. 3. Ferrous sulfate 325 mg p.o. daily. 4. Hydrochlorothiazide 25 mg p.o. daily. 5. Lantus 30 units subcutaneously at bedtime. 6. Culturelle 1 tab p.o. b.i.d. 7. Losartan 25 mg p.o. b.i.d. 8. Lopressor 50 mg p.o. b.i.d. 9. Lispro 8 to 10 units subcutaneously q. a.c. Dictated By: GENA LERMA/FREDERICK Conf#: [id number] DID#: [id number]
== END 2016-08-07 18:20 | disposition home or self-care (01) | DRG 872 ==
LOC: E/R 14:00 → MS2 16:28
PROVIDERS: ADMIT Internal Medicine; ATTEND Internal Medicine
DX: A41.50 Gram-negative sepsis, unspecified (principal); N17.9 Acute kidney failure, unspecified; E11.22 Type 2 diabetes mellitus with diabetic chronic kidney disease; E11.65 Type 2 diabetes mellitus with hyperglycemia; N39.0 Urinary tract infection, site not specified; B96.89 Other specified bacterial agents as the cause of diseases classified elsewhere; I12.9 Hypertensive chronic kidney disease with stage 1 through stage 4 chronic kidney disease, or unspecified chronic kidney disease; N18.9 Chronic kidney disease, unspecified
CPT/HCPCS: 36415; 70450; 71010; 71020; 76775; 80048; 80053; 81001; 81003; 82803; 82962; 83036; 83605; 83735; 83880; 84100; 84484; 85025; 85378; 85610; 85651; 85730; 87040; 87045; 87086; 93005; 94640; 96361; 96365; 96372; 97162; J1940; J0360; J0696; J0743; J0744; J1815; J2060; J3475; J7030; J7040

== ENCOUNTER 2016-08-28 13:32 | Emergency (ER) | payer MEDICARE, OTHER ==
[~2016-08-28] VITALS: Ht 165.1 cm; Wt 90.0 kg
[~2016-08-28 13:32] MED LIST changes: +ASPI-664 PO; -BACTDS PO; -CEPH-443 PO; +CIPR500T4 PO; +FER325 PO; +HYD25 PO; -IBUP-1542 PO; +INSU100C SQ; +LACT1CAP57 PO; +LANT3I SC; +LOSA25TA5 PO; +METO-429 PO
[2016-08-28 13:35] VITALS: Ht 165.1 cm; Wt 90.0 kg
[2016-08-28 16:10] LABS: URINE BLOOD (Dip) POC Trace-lysed (NEGATIVE)
[2016-08-28] MEDS ORDERED: INSU100C SQ (17:22)
[2016-08-28] MEDS ORDERED: OMEP20CA16 PO (17:23)
[2016-08-28] MEDS ORDERED: LANT3I SC (17:23)
[2016-08-28] MEDS ORDERED: OMEG1CAP2 PO (17:24)
[2016-08-28] MEDS ORDERED: CRES10 PO (17:24)
[2016-08-28] MEDS ORDERED: CEPH-443 PO (17:25)
[2016-08-28] MEDS ORDERED: PHEN-538 PO (17:25)
[2016-08-28 17:30] VITALS: BP 180/65; PULSE 65; RESP 17; TEMP 98.7
--- NOTE | 2016-08-28 19:04 | ERD ---
ER Documentation Chief Complaint Date/Time DATE: 08/28/16 TIME: 19:01 Chief Complaint ap x 1 mos HPI Patient is a 71-year-old female with hypertension and diabetes. The patient presents with a "urine infection". The patient has pain in her kidneys and lower abdomen. The symptoms started 2 days ago. Patient denies fevers. She tried Tylenol. She went to see her primary doctor on Friday but there was no information given to her. Upon review of old medical records this is the patient's third visit to the ER since July 2016. ROS All systems reviewed and are negative except as per history of present illness. Medications Home Meds Active Scripts Phenazopyridine Hcl* (Pyridium*) 200 Mg Tab, 200 MG PO TID Y for URINARY PAIN, # 6 TAB Prov:MEL BARONE MD 08/28/16 Cephalexin* (Keflex*) 500 Mg Capsule, 500 MG PO QID for 7 Days, CAP Prov:MEL BARONE MD 08/28/16 Ferrous Sulfate* (Ferrous Sulfate*) 325 Mg Tabec, 325 MG PO DAILY for 30 Days, TAB continue home meds Prov:GENA PIKE 08/07/16 Lactobacillus Rhamnosus* (Culturelle*) 1 Each Cap.sprink, 1 CAP PO BID for 30 Days, CAP Prov:GENA PIKE 08/07/16 Hydrochlorothiazide* (Hydrochlorothiazide*) 25 Mg Tab, 25 MG PO DAILY for 30 Days, TAB 3 Refills Prov:GENA PIKE 08/07/16 Aspirin* (Aspirin* EC) 81 Mg Tablet.dr, 81 MG PO DAILY for 30 Days continue home meds Prov:GENA PIKE 08/07/16 Metoprolol Tartrate* (Lopressor*) 50 Mg Tab, 50 MG PO BID for 30 Days, TAB Continue home meds Prov:GENA PIKE 08/07/16 Losartan Potassium* (Losartan Potassium*) 25 Mg Tablet, 25 MG PO BID for 30 Days , TAB 3 Refills Prov:GENA PIKE 08/07/16 Reported Medications [place]-3 Acid Ethyl Esters (Lovaza) 1 Gm Capsule, 1 GM PO BID, CAP 08/28/16 Rosuvastatin Calcium* (Crestor*) 10 Mg Tablet, 10 MG PO QHS, #30 TAB 08/28/16 Omeprazole* (Omeprazole*) 20 Mg Capsule.dr, 20 MG PO DAILY, #30 CAP 08/28/16 Insulin Glargine* (Lantus*) 100 Unit/Ml Soln, 35 UNIT SC QHS, #1 VIAL 08/28/16 Insulin Lispro (Humalog) 100 Unit/1 Ml Cartridge, 0 SQ SLIDING SCALES TAKE 10-20 UNITS WITH SLIDING SCALES 3-4 TIMES A DAY 08/28/16 Discontinued Scripts Insulin Glargine* (Lantus*) 100 Unit/Ml Soln, 30 UNIT SC QHS for 30 Days Prov:GENA PIKE 08/07/16 Ciprofloxacin Hcl* (Ciprofloxacin Hcl*) 500 Mg Tablet, 500 MG PO Q12 for 8 Days , TAB Prov:GENA PIKE 08/07/16 Insulin Lispro (Humalog) 100 Unit/1 Ml Cartridge, 8-10 UNIT SQ AC MEALS for 30 Days continue home meds Prov:GENA PIKE 08/07/16 Allergies Allergies: Coded Allergies: No Known Allergies (Verified Allergy, Unknown, 08/28/16) PMhx/Soc History of Surgery: Yes (cholecystectomy 25 years ago) Anesthesia Reaction: No Hx Neurological Disorder: Yes (neuropathy) Hx Respiratory Disorders: Yes (sob) Hx Cardiac Disorders: Yes (htn) Hx Psychiatric Problems: Yes (anxiety, claustrophobic) Hx Miscellaneous Medical Probl: Yes (DM) Hx Alcohol Use: No Hx Substance Use: No Hx Tobacco Use: Yes Smoking Status: Never smoker FmHx Family History: No diabetes Physical Exam Vitals Vital Signs Date Time Temp Pulse Resp B/P Pulse Ox O2 Delivery O2 Flow Rate FiO2 08/28/16 17:30 98.7 65 17 180/65 100 Room Air 08/28/16 13:35 98.1 62 18 197/75 99 Physical Exam Const: No acute distress, smiling and happy Head: Atraumatic Eyes: Normal Conjunctiva ENT: Normal External Ears, Nose and Mouth. Neck: Full range of motion..~ No meningismus. Resp: Clear to auscultation bilaterally Cardio: Regular rate and rhythm, no murmurs Abd: Soft, mild tenderness to palpation over the bladder Skin: No petechiae or rashes Back: No midline or flank tenderness Ext: No cyanosis, or edema Neur: Awake and alert Psych: Normal Mood and Affect Results 24 hrs Laboratory Tests Test 08/28/16 16:11 Bedside Urine pH (LAB) 6.5 Bedside Urine Protein (LAB) Negative Bedside Urine Glucose (UA) Negative Bedside Urine Ketones (LAB) Negative Bedside Urine Blood Trace-lysed Bedside Urine Nitrite (LAB) Negative Bedside Urine Leukocyte Esterase (L Trace Procedures/MDM Patient is a 71-year-old female with hypertension and diabetes who presents with a "urine infection". She has a mild UTI based on a urine dip. I did send a urine culture to confirm. She will be started on Keflex and Pyridium. She can return for any worsening symptoms. She is well-appearing and smiling and happy in the emergency department. I doubt sepsis, appendicitis, or bowel obstruction. Departure Diagnosis: Primary Impression: Cystitis Additional Impression: Abdominal pain Abdominal location: unspecified location Qualified Code: R10.9 - Abdominal pain, unspecified location Condition: Fair Patient Instructions: Abdominal Pain, Cystitis Additional Instructions: Call your primary care doctor TOMORROW for an appointment during the next 1-2 days.See the doctor sooner or return here if your condition worsens before your appointment time. MEL BARONE MD August 28, 2016 19:04
== END 2016-08-28 17:30 | disposition home or self-care (01) ==
LOC: E/R 13:32
DX: N30.90 Cystitis, unspecified without hematuria (principal); I10 Essential (primary) hypertension; E11.9 Type 2 diabetes mellitus without complications; Z79.4 Long term (current) use of insulin; Z79.82 Long term (current) use of aspirin
CPT/HCPCS: 81003; 87086; 99283